=== PATIENT | male | born 1955 | race Caucasian/White ===

== ENCOUNTER 2017-11-09 06:29 | Day surgery (SDC) | payer OTHER, SELFPAY ==
[2017-11-09] VITALS (11 sets, daily range): BP systolic 96–144; BP diastolic 63–100; PULSE 46–97; RESP 14–16; TEMP 35.9–36.5; O2SAT 95–100; BMI 25.4
--- NOTE | 2017-11-09 | EGD_PTH ---
PATIENT: PORTILLO CHAMBERS LOC: EN U#:[id number] AGE/SX: 62/M ROOM: RE11/09/[address]: Dr. Sammy Zaman MD : 1955 BED: DIS: 11/09/2017 SPEC #: [id number] RECD: 11/09/17 11:43 STATUS: SIGNH JAMSHID #: [id number] JASWINDER: 11/09/17 00:[address]: Sammy aZman DEPT: SURGICAL PATHOLOGY RECD BY: Maximus Zeng ENTERED: 11/09/17 11:43 SP TYPE: EGD BIOPSY OT DR: Lidia Perry PA-C Tissues: A - Duodenum, NOS B - Gastric mucous membrane C - Gastric mucous membrane Procedures: Surgery Specimen Level IV HEADER OPERATION: Colonoscopy, EGD PRE-OP DIAGNOSIS: GERD with esophagitis; screening for colon CA TISSUE SUBMITTED: A ? Duodenal biopsy, B ? Antral biopsy, C ? GE junction biopsy MICROSCOPIC DIAGNOSIS A. Duodenum, biopsy: Mild nonspecific chronic inflammation. B. Gastric antrum, biopsy: Mild chronic gastritis. C. Gastroesophageal junction, biopsy: Junctional mucosa with chronic inflammation. Squamous mucosa with focal changes of reflux. AM:blanco 11/12/17 COMMENT A. There is no flattening of villi seen. The changes are nonspecific. Clinical correlation is suggested. B. The results of immunohistochemistry for Helicobacter pylori will be reported separately ([id number]). MICROSCOPIC DESCRIPTION Slides are reviewed. GROSS DESCRIPTION A - Received in fixative is one container labeled with the patient's name and designated duodenal biopsy. The specimen consists of multiple irregular fragments of light cantor soft tissue that in aggregate measure 1 x 0.3 x 0.1 cm. The specimen is totally submitted in one cassette. B - Received in fixative is one container labeled with the patient's name and designated antral biopsy. The specimen consists of one irregular fragment of light cantor soft tissue that measures 0.6 x 0.3 x 0.1 cm. The specimen is totally submitted in one cassette. C - Received in fixative is one container labeled with the patient's name and designated GE junction. The specimen consists of two irregular fragments of light cantor soft tissue that in aggregate measure 0.6 x 0.2 x 0.1 cm. The specimen is totally submitted in one cassette. / NEREYDA:blanco 11/09/17 TC:3 CPT: 53558 x3
--- NOTE | 2017-11-09 | IMM_PTH ---
PATIENT: PORTILLO CHAMBERS LOC: EN U#:[id number] AGE/SX: 62/M ROOM: RE11/09/[address]: Dr. Sammy Zaman MD : 1955 BED: DIS: 11/09/2017 SPEC #: [id number] RECD: 11/12/17 11:45 STATUS: SINGH REQ #: [id number] JASWINDER: 11/09/17 00:[address]: Sammy Zaman DEPT: IMMUNOHISTOCHEMISTRY RECD BY: Carol Wellington ENTERED: 11/12/17 11:46 SP TYPE: IMMUNO OTHR DR: Lidia Perry PA-C Tissues: B - Stomach, NOS Procedures: H Pylori (initial) PHYSICIAN & INSTITUTION [place] [address] SPECIMEN INFORMATION: Tissue Source: B ? Antral biopsy Clinical Info: GERD with esophagitis; screening Specimen Number: [id number] CPT code: 05204 METHODOLOGY: Deparaffinized sections of prefer/formalin-fixed tissue or PAP/DQ stained slides are incubated with monoclonal/polyclonal antibodies/oligonucleotide probes. Localization is made via biotin free immunoperoxidase method. Appropriate controls are performed and reacted as expected. Results on target cell population are indicated in the following table: RESULTS: ANTIBODY / CLONE RESULT Block B H Pylori (polyclonal) negative These tests were developed and their performance characteristics determined by [facility]. They may not have been cleared or approved by the U.S. Food and Drug Administration. The FDA has determined that such clearance or approval is not necessary. INTERPRETATION: B. Antral biopsy: Negative for Helicobacter pylori organisms. SJ:blanco 11/12/17
--- NOTE | 2017-11-09 07:44 | PCM.OPRPT ---
Problem List (1) GERD with esophagitis Status: Acute (2) Screening for intestinal cancer Status: Acute Report of Operation Date of Procedure: 11/09/17 Pre-Operative Diagnosis: Gastroesophageal reflux disease. Screening for intestinal cancer Post-Operative Diagnosis: Moderate 5 cm hiatal hernia, distal esophagitis at the e.g. junction. Minimal sigmoid diverticulosis. Suspected healed posterior anal fissure Surgery/Procedure Performed:: Esophagogastroduodenoscopy with cold forcep biopsies. Colonoscopy Description of Surgical Findings:: Timeout and informed consent was obtained. 62-year-old gent was taken to the endoscopy suite. His oropharynx anesthetized with Topex. He was placed in a left loud skin position. Throughout the procedure he received a total of 100 mg Demerol and 4 mg Versed is intravenous sedation. Under direct visitation gastroscope was inserted in the esophageal inlet. Proximal mid distal esophagus not grossly remarkable. The EG junction was at 39 cm. A 4-5 cm hiatal hernia noted there were changes suggestive distal esophagitis. Scope was advanced in the stomach which does not appear to be remarkable. The scope advanced through the pylorus with some very slight irritation of the duodenum. No ulcerations no bleeding. The first and second portion of the duodenum were inspected. Duodenal biopsy was obtained. This was very mild. The scope was withdrawn back in the stomach retroflexed the EG junction cardia inspected. A hiatal hernia noted. Photographs were obtained. The cardia was otherwise unremarkable. The greater and lesser curvatures were not remarkable. Antral biopsy was obtained. Excess fluid and air was aspirated free. The scope was withdrawn to the distal esophagus and biopsies were obtained to the e.g. junction. This appeared to be wide open. The scope was further withdrawn no additional esophageal abnormalities noted. Digital rectal exam performed. Posteriorly there was some slight rough perianal tissue posteriorly. On inspection this appeared to be consistent with some tissue from a healed posterior fissure. There seem to be some soft tissue deficit in that area on clinical digital exam. Some mild hemorrhoidal changes. 2+ smooth prostate. Flexible colonoscope inserted the rectum advanced quite readily through the colon. To get the scope to advance the cecum the patient was placed supine and some transabdominal pressure was applied. The cecum ileocecal valve area was nicely achieved. Bowel prep was quite good. The scope was carefully withdrawn from the cecum ascending colon transverse colon descending colon and sigmoid colon. Minimal scattered sigmoid diverticulosis noted. The scope was retroflexed. Anorectal verge inspected mild hemorrhoidal changes noted. Scope was placed back in antegrade viewing position. The scope was with removed without additional abnormality noted. Impression Hiatal hernia with findings consistent with reflux esophagitis. Biopsies pending. Minimal sigmoid diverticulosis. Findings suggestive of healed posterior anal fissure. The patient will be offered consideration for further workup regarding his gastroesophageal reflux disease with potential considering surgical intervention for repair. Next screening colonoscopy recommended in 10 years. This is the patient's first colonoscopy. Cc: Dr. Lidia Perry Upper medications were given at 0719. Procedure started 0721. It was completed at 0726. The colonoscopy was started at 0730. The cecum was reached at 0735. The procedure was completed at 0741. Sammy Zaman M.D., F.A.C.S. Type of Anesthesia:: IV Sedation
== END 2017-11-09 09:30 | disposition home or self-care (01) ==
LOC: EN 06:30 → AC 06:32
PROVIDERS: Family Provider Family Medicine; PCP Family Medicine; Visit Provider Surgery
PROC: 0DJD8ZZ Inspection of Lower Intestinal Tract, Via Natural or Artificial Opening Endoscopic (ICD-10-PCS; CPT 45378; principal; 2017-11-09 07:40)
DX: Z12.11 Encounter for screening for malignant neoplasm of colon (principal); K29.50 Unspecified chronic gastritis without bleeding; K52.9 Noninfective gastroenteritis and colitis, unspecified; K21.0 Gastro-esophageal reflux disease with esophagitis; K44.9 Diaphragmatic hernia without obstruction or gangrene; K57.30 Diverticulosis of large intestine without perforation or abscess without bleeding; G47.30 Sleep apnea, unspecified; Z87.891 Personal history of nicotine dependence; Z80.0 Family history of malignant neoplasm of digestive organs
CPT/HCPCS: 43239; 45378; 88305; 88342; 99152; 99153; J7120

== ENCOUNTER → 2018-02-21 14:25 | Outpatient (CLI) | payer OTHER, SELFPAY ==
[2017-11-09 06:48] VITALS: BMI 25.4
[2018-02-21 15:29] LABS: Absolute Lymphocyte Count 1.64 X10^3/ul (0.83-4.51); Absolute Neutrophil Count 3.3 X10^3/uL (2.0-7.7); Basophil# 0.01 X10^3/uL; Basophil% 0.2 % (0-1); Eosinophil# 0.07 X10^3/uL; Eosinophils% 1.3 % (0-5); Hematocrit 46.5 % (40-54); Hemoglobin 15.6 g/dl (13.0-16.5); Lymphocyte # 1.64 X10^3/ul (4.0); Lymphocyte % 29.8 % (19-41); Mean Corp Hgb Conc 33.5 g/gl (32-36); Mean Corpuscular Volume 95.3 fL (80-94); Mean Platelet Vol. 10.3 fl (6.2-12.0); Monocyte# 0.49 X10^3/uL; Monocyte% 8.9 % (0-10); Neutrophil # 3.28 X10^3/uL (2.7-7.7); Neutrophil % 59.6 % (47-70); Platelet Count 157 K/mm3 (150-450); RBC Distribution Width CV 12.4 % (11.6-14.6); RBC Distribution Width SD 42.4 fl (35.1-43.9); Red Blood Count 4.88 M/mm3 (4.6-6.2); White Blood Count 5.5 K/mm3 (4.4-11.0)
[2018-02-21 15:32] LABS: POSITIVE COUNT NO; POSITIVE DIFFERENTIAL NO; POSITIVE MORPHOLOGY NO
[2018-02-21 15:37] LABS: ALB/GLOB Ratio 1.1 RATIO (0.9-2.4); AST(SGOT) 23 U/L (15-37); Alanine Aminotransfer ALT/SGPT 32 U/L (16-61); Alkaline Phosphatase 96 U/L (45-117); Anion Gap 7 (5-15); BUN 16 mg/dL (7-18); BUN/Creat Ratio 13.8 RATIO (10-20); Calcium,Total 8.5 mg/dL (8.5-10.1); Chloride 110 mmol/L (98-107); Creatinine, Serum 1.16 mg/dL (0.70-1.30); EST Glomerular Filtration Rate 68 mL/min (>60); Est Glom Filt Rate - Afr Amer 82 mL/min (>60); Globulin 3.7 g/dL (2.2-4.2); Glucose 78 mg/dL (74-106); Protein, Total 7.7 g/dL (6.4-8.2); Sodium Level 143 mmol/L (136-145)
[2018-02-26 13:27] LABS: ANTINUCLEAR ANTIBODIES DIRECT Positive (Negative); Anti-dsDNA Ab 4 IU/mL (0-9)
== END ==
PROVIDERS: Family Provider Family Medicine; PCP Family Medicine; Referring Provider Dermatology Pediatric Dermatology; Visit Provider Dermatology Pediatric Dermatology
DX: L30.9 Dermatitis, unspecified (principal); T49.0X5A Adverse effect of local antifungal, anti-infective and anti-inflammatory drugs, initial encounter
CPT/HCPCS: 36415; 80053; 85025; 86038; 86225

== ENCOUNTER 2018-05-09 07:37 | Day surgery (SDC) | payer OTHER, SELFPAY ==
[2018-04-25 07:52] VITALS: BMI 24.7
[2018-05-09 08:01] VITALS: BP 157/98; PULSE 63; RESP 16; TEMP 36.3; O2SAT 98
== END 2018-05-09 08:31 | disposition home or self-care (01) ==
PROVIDERS: Family Provider Family Medicine; PCP Family Medicine; Referring Provider Surgery; Visit Provider Surgery
PROC: F00ZJWZ Instrumental Swallowing and Oral Function Assessment using Swallowing Equipment (ICD-10-PCS; CPT 43235; principal; 2018-05-09 07:55)
DX: K44.9 Diaphragmatic hernia without obstruction or gangrene (principal)
CPT/HCPCS: 91010

== ENCOUNTER 2018-07-08 09:44 | Observation (INO) | payer OTHER, SELFPAY ==
[2018-05-23 08:34] VITALS: BMI 25.5
--- NOTE | 2018-05-28 09:38 | HP_ITS ---
Intake Vital Signs 05/23/18 Height 5 ft 6.5 in 05/23/18 Weight: 160 lb 12 oz 05/23/18 Body Mass Index (BMI) 25.5 05/23/18 Blood Pressure 144/78 H 05/23/18 Blood Pressure Location Rt brachial 05/23/18 Blood Pressure Position Sitting 05/23/18 Respiratory Rate 20 H 05/23/18 Pulse Rate 57 L 05/23/18 Pulse Ox 97 05/23/18 Body Mass Index (BMI) 24.7 Intake Visit Reasons: Discuss Lap Gerir Surgery Chief Complaint: discuss lap gerri Vice President For Instruction Required: No Is patient in pain?: No Allergies esomeprazole Allergy (Mild, Verified 04/25/18 07:55) Rash Medications ranitidine 150 mg tablet 150 mg PO DAILY 04/25/18 [History Confirmed 05/23/18] PFSH Medical History Screening for intestinal cancer (Acute) GERD with esophagitis (Acute) GERD (gastroesophageal reflux disease) (Acute) Sleep apnea (Acute) Surgical History History of esophagogastroduodenoscopy (EGD) (Acute) Family History Father Cancer esophageal Social History Smoking Status: Former smoker alcohol intake: current substance use type: does not use HPI HPI Surgical H&P: Yes HPI: PORTILLO CHAMBERS, is a 63 M who presents to the office today for surgical discussion regarding intractable gastroesophageal reflux disease. Please refer to my previous office review as follows. Intake Vital Signs 04/25/18 Height 5 ft 7.5 in 04/25/18 Weight: 160 lb 04/25/18 Body Mass Index (BMI) 24.7 04/25/18 Blood Pressure 160/92 H 04/25/18 Blood Pressure Location Rt brachial 04/25/18 Blood Pressure Position Sitting 04/25/18 Respiratory Rate 18 04/25/18 Pulse Rate 60 Intake Visit Reasons: TO DISCUSS HIATAL HERNIA/EGD & C-SCOPE WAS 10/2017 Chief Complaint: screening c-scope/ EGD for fam hx esoph CA Vice President For Instruction Required: No Is patient in pain?: No Allergies esomeprazole Allergy (Mild, Verified 04/25/18 07:55) Rash Medications ranitidine 150 mg tablet 150 mg PO DAILY 04/25/18 [History Confirmed 04/25/18] [facility] Medical History Screening for intestinal cancer (Acute) GERD with esophagitis (Acute) GERD (gastroesophageal reflux disease) (Acute) Sleep apnea (Acute) Surgical History History of esophagogastroduodenoscopy (EGD) (Acute) Family History Father Cancer esophageal Social History Smoking Status: Former smoker alcohol intake: current substance use type: does not use HPI HPI HPI: PORTILLO CHAMBERS, is a 63 M who presents to the office today for ongoing surgical consultation regarding gastroesophageal reflux disease and hiatal hernia and reflux esophagitis. September 2017 I evaluated this patient. He had been previously evaluated for intractable reflux. At that point he was proton pump inhibitor. I placed him post procedure on his omeprazole but apparently he developed a rash. He now takes ranitidine daily but has significant ongoing problems with reflux and discomfort. He is a short local company flatbed truck driver. He does do some lifting and straining as well working for the [employer]. Because of ongoing symptoms he returns wanting to go to investigate other treatment options for his GERD. Previous biopsies demonstrated mild gastritis with H. pylori negative. There was biopsy changes consistent with reflux esophagitis. My procedure note is as follows. [facility] Medical Records Department [address] [place] [address] Operative Report 11/09/17 0744 MR#: [id number]:[id number] Name: PORTILLO CHAMBERS [facility] #:[id number] : [id number]: Sammy Zaman MD PCP:Lidia Perry PA-C Status:[facility] Location: [place] [address] Problem List (1) GERD with esophagitis Status: Acute (2) Screening for intestinal cancer Status: Acute Report of Operation Date of Procedure: 11/09/17 Pre-Operative Diagnosis: Gastroesophageal reflux disease. Screening for intestinal cancer Post-Operative Diagnosis: Moderate 5 cm hiatal hernia, distal esophagitis at the e.g. junction. Minimal sigmoid diverticulosis. Suspected healed posterior anal fissure Surgery/Procedure Performed:: Esophagogastroduodenoscopy with cold forcep biopsies. Colonoscopy Description of Surgical Findings:: Timeout and informed consent was obtained. 62-year-old gent was taken to the endoscopy suite. His oropharynx anesthetized with Topex. He was placed in a left loud skin position. Throughout the procedure he received a total of 100 mg Demerol and 4 mg Versed is intravenous sedation. Under direct visitation gastroscope was inserted in the esophageal inlet. Proximal mid distal esophagus not grossly remarkable. The EG junction was at 39 cm. A 4-5 cm hiatal hernia noted there were changes suggestive distal esophagitis. Scope was advanced in the stomach which does not appear to be remarkable. The scope advanced through the pylorus with some very slight irritation of the duodenum. No ulcerations no bleeding. The first and second portion of the duodenum were inspected. Duodenal biopsy was obtained. This was very mild. The scope was withdrawn back in the stomach retroflexed the EG junction cardia inspected. A hiatal hernia noted. Photographs were obtained. The cardia was otherwise unremarkable. The greater and lesser curvatures were not remarkable. Antral biopsy was obtained. Excess fluid and air was aspirated free. The scope was withdrawn to the distal esophagus and biopsies were obtained to the e.g. junction. This appeared to be wide open. The scope was further withdrawn no additional esophageal abnormalities noted. Digital rectal exam performed. Posteriorly there was some slight rough perianal tissue posteriorly. On inspection this appeared to be consistent with some tissue from a healed posterior fissure. There seem to be some soft tissue deficit in that area on clinical digital exam. Some mild hemorrhoidal changes. 2+ smooth prostate. Flexible colonoscope inserted the rectum advanced quite readily through the colon. To get the scope to advance the cecum the patient was placed supine and some transabdominal pressure was applied. The cecum ileocecal valve area was nicely achieved. Bowel prep was quite good. The scope was carefully withdrawn from the cecum ascending colon transverse colon descending colon and sigmoid colon. Minimal scattered sigmoid diverticulosis noted. The scope was retroflexed. Anorectal verge inspected mild hemorrhoidal changes noted. Scope was placed back in antegrade viewing position. The scope was with removed without additional abnormality noted. Impression Hiatal hernia with findings consistent with reflux esophagitis. Biopsies pending. Minimal sigmoid diverticulosis. Findings suggestive of healed posterior anal fissure. The patient will be offered consideration for further workup regarding his gastroesophageal reflux disease with potential considering surgical intervention for repair. Next screening colonoscopy recommended in 10 years. This is the patient's first colonoscopy. Cc: Dr. Lidia Perry Upper medications were given at 0719. Procedure started 0721. It was completed at 0726. The colonoscopy was started at 0730. The cecum was reached at 0735. The procedure was completed at 0741. Sammy Zaman M.D., F.A.C.S. Type of Anesthesia:: IV Sedation 11/09/17 0750<Electronically signed by Sammy Zaman MD> Date Sammy Zaman MD CC: DAVID Perry; Lidia Perry; Sammy Zaman MD ~ Signed ROS General General: No weight change, appetite, fatigue, colon cancer, breast cancer or weakness HEENT HEENT: No difficulty swallowing, eye injury, eye surgery, swollen glands or hoarseness Endo Endocrine: No thyroid disease, diabetes mellitus, thyroid cancer, Hair loss, heat intolerance or cold intolerance Skin Skin: No rash or changing moles Breast Breast: No left breast lump, right breast lump, nipple discharge, breast pain, abnormal mammogram, abnormal US or breast enlargement Musc Musculoskeletal: No back problems, arthritis, rheumatoid arthritis, gout or joint pain Cardio Cardiovascular: No murmur, pacemaker, heart disease, atrial fibrillation, high blood pressure, heart attack, heart stent, palpitations, shortness of breat with exertion or chest pain Psych Psychiatric: No depression, anxiety or hearing voices Resp Respiratory: No shortness of breath, No sleep apnea, No cough, No COPD, No asthma, No emphysema, No wheezing Gastro Gastrointestinal: No abdominal pain, No nausea or vomiting, No diarrhea, No constipation, No blood in stool, Yes acid reflux, No hemorrhoids, No ulcers, No gallbladder problem, No black,tarry stools Armani Hematologic: No blood thinners, No blood disorders, No bleeding, No anemia, No blood clots Neuro Neurologic: No system reviewed and no additional complaints, except as docu, No as per HPI, No abnormal walking, No abnormal hearing, No abnormal movements, No abnormal speech, No behavioral changes, No burning sensations, No confusion, No seizure-like activity, No unsteadiness, No dizziness, No localized weakness, No frequent falls, No headache(s), No lack of coordination, No loss of vision, No memory loss, Yes numbness, No other visual disturbances, No radiating pain, No restless legs, No sensory deficit, No fainting, Yes tingling, No tremor(s), No weakness, No other Exam Chest Breast Palpation: No nipple discharge Cardio Heart Sounds: no murmurs Assessment & Plan Problems 1. GERD with esophagitis K21.0 Plan Today's appointment was a consultative appointment. I recommend to the patient that we pursue esophageal manometry. I have discussed with him the technique and benefits. I recommend to the patient that we be considering a laparoscopic reflux procedure. At age 63 he is enjoying good health. BMI is 24.7. He would be a good candidate for laparoscopic repair of his hiatal hernia reduction of the stomach and a reflux wrap. Pending the results of his manometry may be a candidate for Gerri fundoplication. He has had an opportunity to ask and have questions answered. I will have him return to my office subsequent to her manometry to discuss definitive options. I appreciate the ongoing opportunity of assisting with his surgical care. CC: DAVID Villanueva M.D., F.A.C.S. Orders Orders: Esophageal Manometry Today Medications New: ranitidine (Zantac) 150 mg PO DAILY Coding Level of Care Code Off vis,est,level 2 Diagnoses GERD with esophagitis K21.0 04/25/18 0934<Electronically signed by Sammy Zaman MD> Date Sammy Zaman MD ROS General General: No weight change, appetite, fatigue, colon cancer, breast cancer or weakness HEENT HEENT: No difficulty swallowing, eye injury, eye surgery, swollen glands or hoarseness Endo Endocrine: No thyroid disease, diabetes mellitus, thyroid cancer, Hair loss, heat intolerance or cold intolerance Skin Skin: No rash or changing moles Breast Breast: No left breast lump, right breast lump, nipple discharge, breast pain, abnormal mammogram, abnormal US or breast enlargement Musc Musculoskeletal: No back problems, arthritis, rheumatoid arthritis, gout or joint pain Cardio Cardiovascular: No murmur, pacemaker, heart disease, atrial fibrillation, high blood pressure, heart attack, heart stent, palpitations, shortness of breat with exertion or chest pain Psych Psychiatric: No depression, anxiety or hearing voices Resp Respiratory: No shortness of breath, No sleep apnea, No cough, No COPD, No asthma, No emphysema, No wheezing Gastro Gastrointestinal: No abdominal pain, No nausea or vomiting, No diarrhea, No constipation, No blood in stool, Yes acid reflux, No hemorrhoids, No ulcers, No gallbladder problem, No black,tarry stools Armani Hematologic: No blood thinners, No blood disorders, No bleeding, No anemia, No blood clots Neuro Neurologic: No weakness Exam Chest Breast Palpation: No nipple discharge Cardio Heart Sounds: no murmurs Assessment & Plan Problems 1. GERD with esophagitis K21.0 Plan The patient returns with his to discuss today he is intractable gastroesophageal reflux disease and previous dependence upon proton pump inhibitors. On May 09, 2018 at the [facility] he had esophageal manometry obtained. 10 swallows were analyzed with good bolus clearance and good swallowing motility. There was normal LES relaxation. As noted above my upper endoscopy exam of September 2017 had detected gastroesophageal reflux disease and hiatal hernia and reflux esophagitis with H. pylori negative. Today was a 20-minute [id number] consultative appointment. I have discussed potential surgical treatments for reflux and detail discussed laparoscopic Gerri fundoplication and laparoscopic toupee procedure. We discussed other techniques as well. The patient and his have had an opting to ask and have questions answered. I believe that he would be a good candidate for laparoscopic Gerri fundoplication. I have discussed the technique, benefit, risks, alternatives. He has had an opting to ask and have questions answered. At this point he is interested in proceeding. We will schedule and proceed at his discretion. I very much appreciate the kind opportunity of continue to assist with his surgical care CC: David Villanueva M.D., F.A.C.S. Coding Level of Care Code Off vis,est,level 2 Diagnoses GERD with esophagitis K21.0
[2018-06-13 08:54] VITALS: BMI 25.5
--- NOTE | 2018-06-28 12:02 | HP.PCM_ITS ---
Problem List (1) GERD (gastroesophageal reflux disease) Status: Acute Qualifiers: Esophagitis presence: with esophagitis Qualified Code(s): K21.0 - Gastro- esophageal reflux disease with esophagitis History and Physical Date of Admission: 07/08/18 MR#: [id number] Name: PORTILLO CHAMBERS Rep #: [id number] : 1955 63 From: Sammy Zaman MD PCP: Lidia Perry PA-C Status: PRE SDC Location: SDC Intake Vital Signs 05/23/18 Height 5 ft 6.5 in 05/23/18 Weight: 160 lb 12 oz 05/23/18 Body Mass Index (BMI) 25.5 05/23/18 Blood Pressure 144/78 H 05/23/18 Blood Pressure Location Rt brachial 05/23/18 Blood Pressure Position Sitting 05/23/18 Respiratory Rate 20 H 05/23/18 Pulse Rate 57 L 05/23/18 Pulse Ox 97 05/23/18 Body Mass Index (BMI) 24.7 Intake Visit Reasons: Discuss Lap Tushar Surgery Chief Complaint: discuss lap tushar Panel Wirer Required: No Is patient in pain?: No Allergies esomeprazole Allergy (Mild, Verified 04/25/18 07:55) Rash Medications ranitidine 150 mg tablet 150 mg PO DAILY 04/25/18 [History Confirmed 05/23/18] PFSH Medical History Screening for intestinal cancer (Acute) GERD with esophagitis (Acute) GERD (gastroesophageal reflux disease) (Acute) Sleep apnea (Acute) Surgical History History of esophagogastroduodenoscopy (EGD) (Acute) Family History Father Cancer esophageal Social History Smoking Status: Former smoker alcohol intake: current substance use type: does not use HPI HPI Surgical H&P: Yes HPI: PORTILLO CHAMBERS, is a 63 M who presents to the office today for surgical discussion regarding intractable gastroesophageal reflux disease. Please refer to my previous office review as follows. Intake Vital Signs 04/25/18 Height 5 ft 7.5 in 04/25/18 Weight: 160 lb 04/25/18 Body Mass Index (BMI) 24.7 04/25/18 Blood Pressure 160/92 H 04/25/18 Blood Pressure Location Rt brachial 04/25/18 Blood Pressure Position Sitting 04/25/18 Respiratory Rate 18 04/25/18 Pulse Rate 60 Intake Visit Reasons: TO DISCUSS HIATAL HERNIA/EGD & C-SCOPE WAS 10/2017 Chief Complaint: screening c-scope/ EGD for fam hx esoph CA Panel Wirer Required: No Is patient in pain?: No Allergies esomeprazole Allergy (Mild, Verified 04/25/18 07:55) Rash Medications ranitidine 150 mg tablet 150 mg PO DAILY 04/25/18 [History Confirmed 04/25/18] [facility] Medical History Screening for intestinal cancer (Acute) GERD with esophagitis (Acute) GERD (gastroesophageal reflux disease) (Acute) Sleep apnea (Acute) Surgical History History of esophagogastroduodenoscopy (EGD) (Acute) Family History Father Cancer esophageal Social History Smoking Status: Former smoker alcohol intake: current substance use type: does not use HPI HPI HPI: PORTILLO BLAKELYKOKRISH, is a 63 M who presents to the office today for ongoing surgical consultation regarding gastroesophageal reflux disease and hiatal hernia and reflux esophagitis. September 2017 I evaluated this patient. He had been previously evaluated for intractable reflux. At that point he was proton pump inhibitor. I placed him post procedure on his omeprazole but apparently he developed a rash. He now takes ranitidine daily but has significant ongoing problems with reflux and discomfort. He is a short aircraft engine mechanic overhaul. He does do some lifting and straining as well working for the [employer]. Because of ongoing symptoms he returns wanting to go to investigate other treatment options for his GERD. Previous biopsies demonstrated mild gastritis with H. pylori negative. There was biopsy changes consistent with reflux esophagitis. My procedure note is as follows. [facility] Medical Records Department [address] [place] [address] Operative Report 11/09/17 0744 MR#: [id number] Name: CHRIS CHAMBERSN [facility] #:[id number] : [id number]: Sammy Zaman MD PCP:Lidia Perry PA-C Status:REG SD Location: [id number] Problem List (1) GERD with esophagitis Status: Acute (2) Screening for intestinal cancer Status: Acute Report of Operation Date of Procedure: 11/09/17 Pre-Operative Diagnosis: Gastroesophageal reflux disease. Screening for intestinal cancer Post-Operative Diagnosis: Moderate 5 cm hiatal hernia, distal esophagitis at the e.g. junction. Minimal sigmoid diverticulosis. Suspected healed posterior anal fissure Surgery/Procedure Performed:: Esophagogastroduodenoscopy with cold forcep biopsies. Colonoscopy Description of Surgical Findings:: Timeout and informed consent was obtained. 62-year-old gent was taken to the endoscopy suite. His oropharynx anesthetized with Topex. He was placed in a left loud skin position. Throughout the procedure he received a total of 100 mg Demerol and 4 mg Versed is intravenous sedation. Under direct visitation gastroscope was inserted in the esophageal inlet. Proximal mid distal esophagus not grossly remarkable. The EG junction was at 39 cm. A 4-5 cm hiatal hernia noted there were changes suggestive distal esophagitis. Scope was advanced in the stomach which does not appear to be remarkable. The scope advanced through the pylorus with some very slight irritation of the duodenum. No ulcerations no bleeding. The first and second portion of the duodenum were inspected. Duodenal biopsy was obtained. This was very mild. The scope was withdrawn back in the stomach retroflexed the EG junction cardia inspected. A hiatal hernia noted. Photographs were obtained. The cardia was otherwise unremarkable. The greater and lesser curvatures were not remarkable. Antral biopsy was obtained. Excess fluid and air was aspirated free. The scope was withdrawn to the distal esophagus and biopsies were obtained to the e.g. junction. This appeared to be wide open. The scope was further withdrawn no additional esophageal abnormalities noted. Digital rectal exam performed. Posteriorly there was some slight rough perianal tissue posteriorly. On inspection this appeared to be consistent with some tissue from a healed posterior fissure. There seem to be some soft tissue deficit in that area on clinical digital exam. Some mild hemorrhoidal changes. 2+ smooth prostate. Flexible colonoscope inserted the rectum advanced quite readily through the colon. To get the scope to advance the cecum the patient was placed supine and some transabdominal pressure was applied. The cecum ileocecal valve area was nicely achieved. Bowel prep was quite good. The scope was carefully withdrawn from the cecum ascending colon transverse colon descending colon and sigmoid colon. Minimal scattered sigmoid diverticulosis noted. The scope was retroflexed. Anorectal verge inspected mild hemorrhoidal changes noted. Scope was placed back in antegrade viewing position. The scope was with removed without additional abnormality noted. Impression Hiatal hernia with findings consistent with reflux esophagitis. Biopsies pending. Minimal sigmoid diverticulosis. Findings suggestive of healed posterior anal fissure. The patient will be offered consideration for further workup regarding his gastroesophageal reflux disease with potential considering surgical intervention for repair. Next screening colonoscopy recommended in 10 years. This is the patient's first colonoscopy. Cc: Dr. Lidia Perry Upper medications were given at 0719. Procedure started 0721. It was completed at 0726. The colonoscopy was started at 0730. The cecum was reached at 0735. The procedure was completed at 0741. Sammy Zaman M.D., F.A.C.S. Type of Anesthesia:: IV Sedation 11/09/17 0750<Electronically signed by Sammy Zaman MD> Date Sammy Zaman MD CC: DAVID Perry; Lidia Perry; Sammy Zaman MD ~ Signed ROS General General: No weight change, appetite, fatigue, colon cancer, breast cancer or weakness HEENT HEENT: No difficulty swallowing, eye injury, eye surgery, swollen glands or hoarseness Endo Endocrine: No thyroid disease, diabetes mellitus, thyroid cancer, Hair loss, heat intolerance or cold intolerance Skin Skin: No rash or changing moles Breast Breast: No left breast lump, right breast lump, nipple discharge, breast pain, abnormal mammogram, abnormal US or breast enlargement Musc Musculoskeletal: No back problems, arthritis, rheumatoid arthritis, gout or joint pain Cardio Cardiovascular: No murmur, pacemaker, heart disease, atrial fibrillation, high blood pressure, heart attack, heart stent, palpitations, shortness of breat with exertion or chest pain Psych Psychiatric: No depression, anxiety or hearing voices Resp Respiratory: No shortness of breath, No sleep apnea, No cough, No COPD, No asthma, No emphysema, No wheezing Gastro Gastrointestinal: No abdominal pain, No nausea or vomiting, No diarrhea, No constipation, No blood in stool, Yes acid reflux, No hemorrhoids, No ulcers, No gallbladder problem, No black,tarry stools Armani Hematologic: No blood thinners, No blood disorders, No bleeding, No anemia, No blood clots Neuro Neurologic: No system reviewed and no additional complaints, except as docu, No as per HPI, No abnormal walking, No abnormal hearing, No abnormal movements, No abnormal speech, No behavioral changes, No burning sensations, No confusion, No seizure-like activity, No unsteadiness, No dizziness, No localized weakness, No frequent falls, No headache(s), No lack of coordination, No loss of vision, No memory loss, Yes numbness, No other visual disturbances, No radiating pain, No restless legs, No sensory deficit, No fainting, Yes tingling, No tremor(s), No weakness, No other Exam Chest Breast Palpation: No nipple discharge Cardio Heart Sounds: no murmurs Assessment & Plan Problems 1. GERD with esophagitis K21.0 Plan Today's appointment was a consultative appointment. I recommend to the patient that we pursue esophageal manometry. I have discussed with him the technique and benefits. I recommend to the patient that we be considering a laparoscopic reflux procedure. At age 63 he is enjoying good health. BMI is 24.7. He would be a good candidate for laparoscopic repair of his hiatal hernia reduction of the stomach and a reflux wrap. Pending the results of his manometry may be a candidate for Tushar fundoplication. He has had an opportunity to ask and have questions answered. I will have him return to my office subsequent to her manometry to discuss definitive options. I appreciate the ongoing opportunity of assisting with his surgical care. CC: DAVID Villanueva M.D., F.A.C.S. Orders Orders: Esophageal Manometry Today Medications New: ranitidine (Zantac) 150 mg PO DAILY Coding Level of Care Code Off vis,est,level 2 Diagnoses GERD with esophagitis K21.0 04/25/18 0934<Electronically signed by Sammy Zaman MD> Date Sammy Zaman MD ROS General General: No weight change, appetite, fatigue, colon cancer, breast cancer or weakness HEENT HEENT: No difficulty swallowing, eye injury, eye surgery, swollen glands or hoarseness Endo Endocrine: No thyroid disease, diabetes mellitus, thyroid cancer, Hair loss, heat intolerance or cold intolerance Skin Skin: No rash or changing moles Breast Breast: No left breast lump, right breast lump, nipple discharge, breast pain, abnormal mammogram, abnormal US or breast enlargement Musc Musculoskeletal: No back problems, arthritis, rheumatoid arthritis, gout or joint pain Cardio Cardiovascular: No murmur, pacemaker, heart disease, atrial fibrillation, high blood pressure, heart attack, heart stent, palpitations, shortness of breat with exertion or chest pain Psych Psychiatric: No depression, anxiety or hearing voices Resp Respiratory: No shortness of breath, No sleep apnea, No cough, No COPD, No asthma, No emphysema, No wheezing Gastro Gastrointestinal: No abdominal pain, No nausea or vomiting, No diarrhea, No constipation, No blood in stool, Yes acid reflux, No hemorrhoids, No ulcers, No gallbladder problem, No black,tarry stools Armani Hematologic: No blood thinners, No blood disorders, No bleeding, No anemia, No blood clots Neuro Neurologic: No weakness Exam Chest Breast Palpation: No nipple discharge Cardio Heart Sounds: no murmurs Assessment & Plan Problems 1. GERD with esophagitis K21.0 Plan The patient returns with his to discuss today he is intractable gastroesophageal reflux disease and previous dependence upon proton pump inhibitors. On May 09, 2018 at the [facility] he had esophageal manometry obtained. 10 swallows were analyzed with good bolus clearance and good swallowing motility. There was normal LES relaxation. As noted above my upper endoscopy exam of September 2017 had detected gastroesophageal reflux disease and hiatal hernia and reflux esophagitis with H. pylori negative. Today was a 20-minute [id number]-or-[id number] consultative appointment. I have discussed potential surgical treatments for reflux and detail discussed laparoscopic Tushar fundoplication and laparoscopic toupee procedure. We discussed other techniques as well. The patient and his have had an opting to ask and have questions answered. I believe that he would be a good candidate for laparoscopic Tushar fundoplication. I have discussed the technique, benefit, risks, alternatives. He has had an opting to ask and have questions answered. At this point he is interested in proceeding. We will schedule and proceed at his discretion. I very much appreciate the kind opportunity of continue to assist with his surgical care CC: David Villanueva M.D., F.A.C.S. Coding Level of Care Code Off vis,est,level 2 Diagnoses GERD with esophagitis K21.0 06/11/18 1708 <Electronically signed by Sammy Zaman MD> Date: Time: Sammy Zaman MD CC: DAVID Perry; Sammy Zaman MD ~ Date Dictated: 05/28/18937 Date Transcribed: 06/10/18937 Triage Licensed Practical Nurse: Signed I have re-examined the patient. There are no clinical changes since date of exam
--- NOTE | 2018-07-05 11:15 | EKG12_ITS ---
Test Reason : PREOP Blood Pressure : / mmHG Vent. Rate : 049 BPM Atrial Rate : 049 BPM P-R Int : 160 ms QRS Dur : 084 ms QT Int : 432 ms P-R-T Axes : 042 012 024 degrees QTc Int : 390 ms Marked sinus bradycardia Abnormal ECG Confirmed by DEA HUTSON ([id number]), book or script editor EDEL PAULSON ([id number]) on 07/08/2018 2:02:20 PM Referred By: Sammy Zaman Confirmed By:DEA HUTSON
[2018-07-05 11:51] LABS: Hematocrit 45.7 % (40-54); Hemoglobin 15.2 g/dl (13.0-16.5); Mean Corp Hgb Conc 33.3 g/gl (32-36); Mean Corpuscular Hgb 31.6 pg (27.0-32.0); Mean Platelet Vol. 10.4 fl (6.2-12.0); Platelet Count 139 K/mm3 (150-450); RBC Distribution Width CV 12.5 % (11.6-14.6); RBC Distribution Width SD 43.1 fl (35.1-43.9); Red Blood Count 4.81 M/mm3 (4.6-6.2); Scan Indicated on CBC? Y/N NO; White Blood Count 5.2 K/mm3 (4.4-11.0)
[2018-07-05 12:29] LABS: Anion Gap 6 (5-15); BUN 11 mg/dL (7-18); BUN/Creat Ratio 10.6 RATIO (10-20); Calcium,Total 8.5 mg/dL (8.5-10.1); Chloride 108 mmol/L (98-107); Creatinine, Serum 1.04 mg/dL (0.70-1.30); EST Glomerular Filtration Rate 77 mL/min (>60); Est Glom Filt Rate - Afr Amer 93 mL/min (>60); Glucose 92 mg/dL (74-106); Potassium 4.2 mmol/L (3.5-5.1); Sodium Level 140 mmol/L (136-145)
[2018-07-08] VITALS (11 sets, daily range): BP systolic 117–151; BP diastolic 81–104; PULSE 50–83; RESP 16–18; TEMP 36.2–36.6; O2SAT 94–97; BMI 25.8
--- NOTE | 2018-07-08 07:12 | DCINST_ITS ---
Discharge Diet: - - Liquid diet. Anything is permitted that will dissolve at body temperature. If that is well tolerated you can advance to very soft foods like pasta and rice. Next on the diet would be flaky fish or small bites of very well cooked chicken. Please reserve beef and pork until your swallowing with no difficulty Discharge Activity: May Not Drive - for 1 week or while taking narcotic pain medicine. May shower in (days): 1 Lifting Restrictions: 10 pounds Call your doctor if your incision/area has: Continuous Slow Oozing, Sudden Increased Bleeding, Increased Pain/ Swelling, Increased Redness, Foul Smelling Discharge Call your doctor if you observe: Fever of 101 or Higher Suture Line Care: Avoid Pulling/Pushing, Avoid Pinching/Bending Additional Dressing/Incision Instructions:: Change or remove dressing in 3 days. Leave steri-strips in place for 1 week. Allergies/Adverse Reactions: Allergies esomeprazole Allergy (Mild, Verified 07/01/18 09:46) Rash Medications to take at Discharge ranitidine 150 mg tablet 150 mg PO DAILY 04/25/18 Primary Care Physician: Lidia Perry PA-C [Primary Care Provider] - Test Results: Test results from this visit will be discussed in further detail at your follow- up appointment, if applicable. Please Follow Up With: Sammy Zaman MD - [phone] When: Call to make an appointment to be seen in about 10 days.
[2018-07-08] MEDS: Cefazolin 2 GM in 0.9% Normal Saline 100 ML IV (07:14)
--- NOTE | 2018-07-08 09:48 | PCM.OPRPT ---
Problem List (1) GERD (gastroesophageal reflux disease) Status: Acute Qualifiers: Esophagitis presence: with esophagitis Qualified Code(s): K21.0 - Gastro-esophageal reflux disease with esophagitis Report of Operation Date of Procedure: 07/08/18 Pre-Operative Diagnosis: Intractable gastroesophageal reflux disease medicine dependent with hiatal hernia Post-Operative Diagnosis: Same Surgery/Procedure Performed:: Laparoscopic Tushar fundoplication Description of Surgical Findings:: Timeout and informed consent was obtained. 63-year-old gent was examined from placement table underwent general endotracheal intubation and anesthesia. Ancef 2 g were given intravenously preoperatively. He was placed in a low lithotomy position. Careful buttock padding was performed. The patient was on a beanbag for further support. The abdomen was sterilely prepped and draped. Ioban drape was used to further secure drapes. 0.5% Marcaine was used as a local anesthetic. Throughout the procedure total 30 cc was used. Skin sites were pre-anesthetized. Superior to the right umbilicus local was instilled and then using a 5 mm Visiport technology direct access was gained to the abdomen. The abdomen was insufflated with CO2 to a pressure of 10 mm rectal pressure. Tunneling trocar was placed in the left upper quadrant 2 more 5 mm 4 parts in the left upper quadrant and then an additional 5 m site in the superior epigastrium where a Farooq's retractor was placed to help hold the left lobe of the liver. Inspection revealed actually moderate sized hiatal hernia with stomach within the chest. The medical esophageal ligament fascia was incised peritoneal fascia was incised I then worked my way over the left side. The left herman identified and I was able to free up the left portion of the stomach I did this by dissecting and transecting short gastrics to mobilize the fundus of the stomach. This gave me access to the stomach from the left side and was able to eat nicely to blunt dissection became apparent there was a moderate sized hernia with stomach within the mediastinum. I then was able to track superiorly over the esophagus and identified that are the right herman Harmonic Scalpel dissection to help transect that and then I tediously worked into the mediastinum. Placed a 1/2 inch Coupland drain around the esophagus to help manipulate and was able to circumferentially 360 degree mobilize esophagus up to the proximal mid mediastinum at least 8 cm cephalad circumferentially. Care was taken to preserve the vagus nerve. The circumferential dissection was question about possible small opening in the right pleura anesthesia was notified and provided some PEEP. I did complete circumferential dissection complete mobilization felt that I had good mobilization to allow up to get the stomach back down to the abdomen. There was reasonable size crural defect. I repaired that with 0 Nurolon sutures with Telfa pledgets. 4 sutures were required to repair the hiatus felt that there was good room for the esophagus. Then the fundus wrapped quite easily. My apical suture using the 0 Nurolon from the fundus of the stomach to the epiphrenic ligament to the anterior wall of the esophagus into the left portion of the fundus and secured that also with pleasant sutures. That appeared to have a good position lie. I placed 1 more fundic stitch to create a short floppy Tushar. I felt that he had good positioning of the wrap. Then insufflated water. I placed a flexible gastroscope and performed a esophagogastroduodenoscopy. Was able to inspect the esophagus EG junction appeared to be in good position there was some curvature from the extensive repair of the posterior hiatus however the scope nicely advanced through the EG junction. I retro-flex the scope was able to see the 360 degree wrap internally also appeared to be in good position. The antrum and proximal duodenum not remarkable. Excess fluid and air was aspirated free. Carefully removed the endoscope. An OG tube was used to completely decompress the stomach nicely. There have been no laparoscopic visualized leak internally. The tunneling trocar site was removed and then the fascia was closed with a grainy needle of 0 Vicryl [id number] suture. Skin edges were approximated interrupted 4 Monocryl subdermal stitches. Steri-Strips Telfa and OpSite dressings applied. Sponge and instrument and needle counts were reported in the surgical correct. Blood loss was quite minimal. He tolerated the procedure well was taken to the recovery room in satisfactory condition without apparent complication. Specimens none. Drains none. Blood loss minimal. Sammy Zaman M.D., F.A.C.S. Type of Anesthesia:: General Anesthesiologist: Jannie Virk
[2018-07-08] MEDS: Bupivacaine Mpf 0.5% 30 ML VIAL (09:54)
--- NOTE | 2018-07-08 10:18 | RAD_ITS ---
STUDY: X-RAY CHEST REASON FOR EXAM: Male, 63 years old. Postoperative laparoscopic and Amilcar fundoplication. Possible pneumothorax. TECHNIQUE: Single AP portable view of the chest. COMPARISON: None. FINDINGS: EKG electrodes are seen. Minimal degree of right basilar atelectasis. There is no evidence of pneumothorax. There is no demonstrated pleural abnormality. Normal size heart. Normal mediastinum and sofie. Normal visualized pulmonary arteries. Normal visualized aortic arch and descending thoracic aorta. Normal visualized thoracic spine. Normal visualized ribs, clavicles, and shoulders. Widening of the paraspinal tissues at the level of the diaphragm suggestive of a small hiatal hernia or postoperative changes. RAD/Chest 1 View (Portable) IMPRESSION: No evidence of pneumothorax. Mild increased markings at the right lung base suggestive of atelectasis. Electronically Signed: Vel Hinkle, at 10:40 EDT , Service support ,
[2018-07-08] MEDS: Famotidine 20 MG Tablet PO (11:50)
[2018-07-08] MEDS: HYDROcodone Bitartrate/Apap 5/325 Tablet PO (11:50)
[2018-07-09 03:40] VITALS: BP 132/97; PULSE 69; RESP 16; TEMP 36.4; O2SAT 98
[2018-07-09] MEDS: Lactated Ringers 1,000 ML 30 ML IV (03:44)
[2018-07-09] MEDS: Acetaminophen 325 MG Tablet 650 MG PO (04:38)
--- NOTE | 2018-07-09 05:52 | PCM.PN.SRG ---
Subjective: No soreness in the epigastrium. Otherwise chest pain and breathing is improved. Hiccups. No burping. Minimal flatus. Enterally feels well. States clear liquids are progressing adequately - Physical Exam Lungs: Clear to auscultation, Normal air movement Abdomen: Bowel Sounds Present, Soft, - - Appropriate tenderness Vital Signs Temp Pulse Resp BP Pulse Ox 97.5 F L 69 16 132/97 H 98 07/09/18 03:40 07/09/18 03:40 07/09/18 03:40 07/09/18 03:40 07/09/18 03:40 Oxygen Flow Rate (L/min) 2 Oxygen Delivery Method Room Air Weight: 162 lb 7.691 oz Body Mass Index (BMI) 25.8 Intake and Output for Last 24 Hours 07/07/18 07/08/18 07/09/18 23:59 23:59 23:59 Intake Total 1400 / 1400 688 / 688 Balance 1400 / 1400 688 / 688 Medical Necessity - Tobacco Use Smoking Status: Former smoker Tobacco Use: Non-smoker Assessment/Plan All Active Problems (Last Reviewed 06/13/18 @ 08:53 by Courtney Reynaga) Screening for intestinal cancer (Acute) GERD with esophagitis (Acute) History of esophagogastroduodenoscopy (EGD) (Acute) Sleep apnea (Acute) GERD (gastroesophageal reflux disease) (Acute) I have fully discussed liquid diet with him for discharge with advancing as tolerates. He has had an opportunity to ask and have questions answered. I anticipate discharge this morning. Sammy Zaman M.D., F.A.C.S.
[2018-07-09] MEDS: Enoxaparin 40 MG/0.4 ML Syringe SC (06:37)
[2018-07-09 07:09] VITALS: BP 120/78; PULSE 50; RESP 16; TEMP 36.4; O2SAT 100
== END 2018-07-09 07:14 | disposition home or self-care (01) ==
LOC: SDC 09:55
PROVIDERS: Admitting Provider Surgery; Family Provider Family Medicine; PCP Family Medicine; Referring Provider Surgery; Visit Provider Surgery
PROC: (CPT 43325; principal; 2018-07-08 06:55)
DX: K21.0 Gastro-esophageal reflux disease with esophagitis (principal); K44.9 Diaphragmatic hernia without obstruction or gangrene; G47.30 Sleep apnea, unspecified; Z87.891 Personal history of nicotine dependence
CPT/HCPCS: 43280; 36415; 71045; 80048; 85027; 93005; 96372; 99218; J7120; G0378; G0379

== ENCOUNTER 2018-10-04 08:53 | Inpatient (IN) | payer OTHER, SELFPAY ==
[2018-07-08 05:43] VITALS: BMI 25.8
[2018-10-04 09:00] VITALS: BP 104/72; PULSE 54; RESP 16; TEMP 36.4; O2SAT 97; BMI 24.3
--- NOTE | 2018-10-04 10:03 | NURSING ---
Aware of being a fall risk and must ask for staff assist and and patient verbalized understanding.
[2018-10-04 10:20] LABS: Absolute Lymphocyte Count 1.42 X10^3/uL (0.83-4.51); Basophil# 0.01 X10^3/uL; Basophil% 0.2 % (0-1); Eosinophil# 0.08 X10^3/uL; Eosinophils% 1.6 % (0-5); Hematocrit 43.8 % (40-54); Hemoglobin 14.7 g/dL (13.0-16.5); Lymphocyte # 1.42 X10^3/ul (4.0); Lymphocyte % 27.5 % (19-41); Mean Corp Hgb Conc 33.6 g/dL (32-36); Mean Corpuscular Volume 95.2 fL (80-94); Mean Platelet Vol. 9.9 fl (6.2-12.0); Monocyte# 0.62 X10^3/uL; NRBC Flagged by Analyzer 0 % (0-5); Neutrophil % 58.1 % (47-70); Platelet Count 159 K/mm3 (150-450); RBC Distribution Width SD 42.1 fl (35.1-43.9); White Blood Count 5.2 K/mm3 (4.4-11.0)
[2018-10-04] MEDS: Acetaminophen 325 MG Tablet 650 MG PO (10:27)
[2018-10-04 10:52] LABS: Anion Gap 5 (5-15); BUN 14 mg/dL (7-18); BUN/Creat Ratio 12.5 RATIO (10-20); Calcium,Total 8.9 mg/dL (8.5-10.1); Chloride 106 mmol/L (98-107); Creatinine, Serum 1.12 mg/dL (0.70-1.30); EST Glomerular Filtration Rate 70 mL/min (>60); Est Glom Filt Rate - Afr Amer 85 mL/min (>60); Estimated Creatinine Clearance 63.12 ml/min; Glucose 92 mg/dL (74-106); Potassium 4.1 mmol/L (3.5-5.1); Sodium Level 141 mmol/L (136-145)
--- NOTE | 2018-10-04 11:22 | PCM.HP.STD ---
History of Present Illness Date of Admission: 10/04/18 Chief Complaint: cva The patient is a 63 year old right handed male who chris am, one week ago in [facility], reports he became sweaty and had high bp, noted garbled speech, life-flighted to [facility], ct showed a left ICH causing right hemiparesis, now significant improvement, now presents to [facility] acute rehab for therapy for goal of congregation of prior level of functioanl independence. healthy, no meds, no smoking, snoring, psg about 10yrs ago normal per . in [place] he was observed, improved, had pt, bp normalized and did not require requrie rx other than in the er. history of migraine, worse over past 4-5 weeks. no history of brain scan prior to bleed. Past Medical History Medical History: Medical History (Last Reviewed 10/04/18 @ 11:28 by Marvin Luna MD) Screening for intestinal cancer (Acute) Z12.10 GERD with esophagitis (Acute) K21.0 Sleep apnea (Acute) G47.30 GERD (gastroesophageal reflux disease) (Acute) K21.9 Allergies esomeprazole Allergy (Mild, Verified 08/07/18 14:33) Rash Home Medications: Ambulatory Orders Medication Instructions Recorded Famotidine [Pepcid] 20 mg PO DAILY 10/04/18 Hydrocodone Bitart/Apap 5-325 1 tab PO Q6H PRN PRN 10/04/18 [[place] 5MG-325MG] Levetiracetam [Keppra] 1,000 mg PO BID 10/04/18 Meclizine HCl 25 mg PO TID PRN 10/04/18 Ondansetron HCl [Zofran] 4 mg PO Q8H PRN 10/04/18 Surgical History: Surgical History (Last Reviewed 10/04/18 @ 11:28 by Marvin Luna MD) History of esophagogastroduodenoscopy (EGD) (Acute) Z98.890 Status post laparoscopic Tushar fundoplication Z98.890 07/14 Smoking Status: Former smoker - *Family History Maternal Family History: Family History (Last Reviewed 08/07/18 @ 14:33 by Rosalie Gardiner) Father Cancer History Items: Stroke Review of Systems Constitutional: Denies: Chills, Fever, Weight Change HEENT: Denies: Head Aches, Sinus Congestion, Sinus Drainage Cardiovascular: Denies: Chest Pain, Palpitations Respiratory: Denies: Cough, Shortness of breath at rest, Sputum production Gastrointestinal: Denies: Abdominal Pain, Nausea, Vomiting Genitourinary: Denies: Dysuria Musculoskeletal: Denies: Joint Pain, Joint Tenderness Skin: Denies: Rash, Wounds Neurological: Denies: Numbness, Tingling, Focal weakness Psychiatric: Denies: Anxiety, Depression, Homicidal Ideations, Suicidal Ideations Hematologic/ Lymphatic: Denies: Easy Bruising, Easy Bleeding VTE Information - Inpt Only VTE Present on Admission: Yes VTE Mechan Device Prophylaxis: SCD's - Physical Exam General: Alert, Cooperative, No apparent distress HEENT: PERRLA, EOMI Neurological: - - mild right central [place] mild right arm and leg discoord moderate to severe receptive and exp aphasia Vital Signs Temp Pulse Resp BP Pulse Ox 36.4 C L 54 L 16 104/72 97 10/04/18 09:00 10/04/18 09:00 10/04/18 09:00 10/04/18 09:00 10/04/18 09:00 Oxygen Delivery Method Room Air Weight: 70.307 kg Body Mass Index (BMI) 24.3 Laboratory Tests Past 24 Hrs 10/04/18 10/04/18 10:08 10:08 WBC 5.2 RBC 4.60 Hgb 14.7 Hct 43.8 MCV 95.2 H MCH 32.0 MCHC 33.6 RDW Std Deviation 42.1 RDW Coeff of [place] 12.0 Plt Count 159 MPV 9.9 Immature Gran % (Auto) 0.600 Neut % (Auto) 58.1 Lymph % (Auto) 27.5 Petroleum % (Auto) 12.0 H Eos % (Auto) 1.6 Baso % (Auto) 0.2 Absolute Neuts (auto) 3.0 Absolute Lymphs (auto) 1.42 Nucleated RBC % 0 Sodium 141 Potassium 4.1 Chloride 106 Carbon Dioxide 30.0 Anion Gap 5 BUN 14 Creatinine 1.12 Estim Creat Clear Calc 63.12 Est GFR (MDRD) Af Amer 85 Est GFR (MDRD) Non-Af 70 BUN/Creatinine Ratio 12.5 Glucose 92 Calcium 8.9 Current Home Med List Medication Instructions Recorded Confirmed Type Famotidine [Pepcid] 20 mg PO DAILY 10/04/18 10/04/18 History Hydrocodone Bitart/Apap 5-325 1 tab PO Q6H PRN PRN 10/04/18 10/04/18 History [[place] 5MG-325MG] Levetiracetam [Keppra] 1,000 mg PO BID 10/04/18 10/04/18 History Meclizine HCl 25 mg PO TID PRN 10/04/18 10/04/18 History Ondansetron HCl [Zofran] 4 mg PO Q8H PRN 10/04/18 10/04/18 History Current Medications Generic Name Dose Route Start Last Admin Trade Name Freq PRN Reason Stop Dose Admin Acetaminophen 650 mg 10/04/18 10:02 10/04/18 10:27 Tylenol PO 650 mg Q6H PRN PRN Administration PAIN Hydrocodone Bitart/Acetaminophen 1 tablet 10/04/18 09:20 [place] 5mg-325mg PO Q6H PRN PRN PAIN Bisacodyl 10 mg 10/04/18 09:21 Dulcolax RECTAL .PRN X 1 PRN Constipation Famotidine 20 mg 10/04/18 10:00 10/04/18 11:51 Pepcid PO 20 mg DAILY JOSEFINA Administration Levetiracetam 1,000 mg 10/04/18 10:00 10/04/18 11:51 Keppra Tablet PO 1,000 mg BID JOSEFINA Administration Lorazepam 0.5 mg 10/04/18 09:21 Ativan PO QHS PRN PRN Insomnia Magnesium Hydroxide 30 ml 10/04/18 09:21 Milk Of Magnesia PO .PRN X 1 PRN Constipation Meclizine HCl 25 mg 10/04/18 09:20 Antivert PO TID PRN prolonged dizziness Ondansetron HCl 4 mg 10/04/18 10:01 Zofran Odt PO Q8H PRN NAUSEA Senna/Docusate Sodium 2 tablet 10/04/18 09:21 Senokot-S, Tish-Colace PO BID PRN CONSTIPATION Assessment/Plan All Active Problems (Last Reviewed 10/04/18 @ 11:28 by Marvin Luna MD) Screening for intestinal cancer (Acute) GERD with esophagitis (Acute) History of esophagogastroduodenoscopy (EGD) (Acute) Sleep apnea (Acute) GERD (gastroesophageal reflux disease) (Acute) left ich, no history of ich, or family history. goal of rehab is congregation of functional independence. history of migraine worsening prior bleed, no previous brain scans. no history of sz, keppra prophylactically initiated. plan pt ot speech prn analgesics bowel protocol scds re-image prn and in a few weeks headache: prn analgesics, dc keppra (prophylactic) start vpa er 1000mg today.
--- NOTE | 2018-10-04 11:37 | PCM.RU.PYE ---
Admission Information Status Changes from Prescreening?: No changes Identified Actual Problem List:: Cognitve Impr/Memory Loss, Alteration in Nutrition, Mobility Impaired, Self Care Deficit, Ineffective Communication, Know.Dfct/Disease Process, Ineffect.D/C Plan r/t Psy Potential Problem List:: DVT, Bleeding, Infection, UTI, Aspiration, Falls, Skin Integrity, Depression Risk of Complications DVT: LMWH, JULIUS Hose, Sequential Compression Device Bleeding: Monitor Lab Values, Nursing to Teach Precautions for anti-coagulation therapy., Wound, if applicable, to be assessed every shift., Stroke patients assessed for lethargy or change in status. Infection: Clinical Staff to Monitor for S/S of infection:, S/S of infection include fever, redness, warmth, etc. Urinary Tract Infection: Monitor for frequency, burning, discomfort, or incontinence., Nursing will obtain urine sample for urinalysis and C&S when ordered. Aspiration: Clinical staff will monitor for coughing, drooling, congestion., Speech will evaluate swallowing and dsyphasia., Nursing will monitor patient swallowing during meals. Falls: Patient will be evaluated for Fall Precautions, Patient will be placed on Fall Precautions as indicated per protocol. Skin Breakdown: Nursing will assess skin daily using assessment tool., Nursing will place on Skin Breakdown Precautions as indicated. Pain: Clinical staff will assess patient's pain level per protocol., Medications will be given, if needed, and the pain level reassessed., Other methods: Massage, distraction, decrease stimulus, etc. used PRN. Plan of Care Patient requires physician specializing in physical medicine and rehab oversight to provide close medical supervision of rehab issues including: Pain Management, Sleep Problems, Bowel and Bladder, Medical and co-morbidity Management, DVT prophylaxis, Rehabilitation Leadership, Coordination of treatment team Patient needs Physical Therapy: For a minimum of 1 hour, At least 5 out of 7 days Patient needs Physical Therapy to improve:: Mobility, Mobility, Mobility, Strengthening, Transfers, Stretching, ROM, Endurance, Stairs, Gait, Balance Patient needs Occupational Therapy: For a minimum of 1 hour, At least 5 out of 7 days Patient needs Occupational Therapy to improve ADL's incl.: Eating, Grooming, Bathing, Dressing, Toileting, Toilet transfers, Community Reintegration, Higher functioning activities, Household tasks, Adaptive Equipment, Splinting, Other activities as determined Patient requires speech therapy: For a minimum of 1 hour, At least 5 out of 7 days Patient requires speech therapy for: Swallowing, Cognition, Language Skills, Compensatory Strategies Patient requires 24/ Rehabilitation Nursing for: Pain Issues, Identifying and preventing risk factors, Monitoring and reporting current medical conditions, Assisting with ambulation, transfer, and all ADL's, Teaching patients about disease process and medications, Family teaching, Providing safe environment, Bowel and Bladder Issues, Skin integrity, Medication Management Patient needs Education And Development Manager/ Case Management for: Discharge Planning, Arranging Home Equipment or Services, Family Interventions Patient needs Dietary and Nutrition Services for: Adequate Nutrition, Nutritional Supplements, Nutritional Education Goals Patient will remain: free from falls, or injury at time of discharge. Patient will perform bed mobility at: MOD I level of assist. Patient will complete transfers from bed to chair at: MOD I level of assist. Patient will ambulate: 100 feet, with MOD I assist, with LRD Patient will complete upper body dressing at: MOD I level of assist. Patient will complete lower body dressing at: MOD I level of assist. Patient will complete toileting at: MOD I level of assist. Patient will perform bathing at: MOD I level of assist. Patient will complete grooming at: MOD I level of assist. Patient will complete home management skills at: MOD I level of assist. Patient will achieve: 12 stairs, at MOD I assist Patient will have pain level of: of 3 or less Patient's skin will: remain intact, free from infection. Patient will receive: adequate nutrition. Discharge Planning Pt Prognosis for Sig. Practical Improv. w/in Reasonable Time: Good Anticipated D/C Destination: Home with Outpt Therapy Was Preadmission Assessment Accurate?: Yes
[2018-10-04] MEDS: levETIRAcetam 1,000 MG Tablet 1000 MG PO (11:51)
[2018-10-04] MEDS: Famotidine 20 MG Tablet PO (11:51)
--- NOTE | 2018-10-04 13:32 | CON.PCM_ITS ---
Problem List (1) Left-sided intracerebral hemorrhage Status: Acute (2) Screening for intestinal cancer Status: Acute (3) GERD with esophagitis Status: Acute (4) History of esophagogastroduodenoscopy (EGD) Status: Acute (5) Sleep apnea Status: Acute (6) GERD (gastroesophageal reflux disease) Status: Acute Qualifiers: Esophagitis presence: with esophagitis Qualified Code(s): K21.0 - Gastro- esophageal reflux disease with esophagitis Reason for Consult Date of Consultation: 10/04/18 Reason for Consultation: Transferred for acute rehab from [place], [place] History of Present Illness: The patient is a 63 year old M with history of possible sleep apnea with GERD is being transferred from acute care hospital in [place], [place] after he had sudden onset of headache, sweating and slurred speech with low volume about 1 week ago while camping. Patient was life flighted to [facility] where he was found large about 8 cm intracerebral hemorrhage in basal ganglia, temporal ICH with subfalcine herniation. Discussed with the patient's and mother in the room. As per the , there is much improvement in weakness of right upper and lower extremity. He also improvement in his speech. Patient was evaluated by physical, occupational speech therapies. Diet has been upgraded from mechanical to regular diet under supervision. Patient has a history of sleep apnea but as per , polysomnography was normal. Blood pressure is 104/72. Patient is running low heart rate, 54/min. Chart from however reviewed. Vitals stable, blood pressure 123/81, heart rate 48/min. Past Medical History Medical History: Medical History (Last Reviewed 10/04/18 @ 11:28 by Marvin Luna MD) Screening for intestinal cancer (Acute) Z12.10 GERD with esophagitis (Acute) K21.0 Sleep apnea (Acute) G47.30 GERD (gastroesophageal reflux disease) (Acute) K21.9 Allergies esomeprazole Allergy (Mild, Verified 08/07/18 14:33) Rash Home Medications: Ambulatory Orders Medication Instructions Recorded Famotidine [Pepcid] 20 mg PO DAILY 10/04/18 Hydrocodone Bitart/Apap 5-325 1 tab PO Q6H PRN PRN 10/04/18 [[place] 5MG-325MG] Levetiracetam [Keppra] 1,000 mg PO BID 10/04/18 Meclizine HCl 25 mg PO TID PRN 10/04/18 Ondansetron HCl [Zofran] 4 mg PO Q8H PRN 10/04/18 Surgical History: Surgical History (Last Reviewed 10/04/18 @ 11:28 by Marvin Luna MD) History of esophagogastroduodenoscopy (EGD) (Acute) Z98.890 Status post laparoscopic Tushar fundoplication Z98.890 07/14 Smoking Status: Former smoker - *Family History Maternal Family History: Family History (Last Reviewed 08/07/18 @ 14:33 by Rosalie Gardiner) Father Cancer History Items: Stroke Review of Systems Constitutional: Denies: Chills, Fever, Weight Change HEENT: Reports: Head Aches. Denies: Sinus Congestion, Sinus Drainage Cardiovascular: Denies: Chest Pain, Palpitations Respiratory: Denies: Cough, Shortness of breath at rest, Sputum production Gastrointestinal: Denies: Abdominal Pain, Nausea, Vomiting Genitourinary: Denies: Dysuria, Frequency Musculoskeletal: Denies: Joint Pain, Joint Tenderness Skin: Denies: Rash, Wounds Neurological: Reports: Balance problems, Double vision, Change in Speech, Slurred speech, Difficulty swallowing, Focal weakness, Incoordination. Denies: Numbness, Tingling Psychiatric: Denies: Anxiety, Depression, Homicidal Ideations, Suicidal Ideations Hematologic/ Lymphatic: Denies: Easy Bruising, Easy Bleeding Patient Problems: Active and Suspected Problems (Last Reviewed 10/04/18 @ 11:28 by Marvin Luna MD) Left-sided intracerebral hemorrhage (Acute) - Physical Exam General: Alert, Oriented x3, Cooperative HEENT: Atraumatic, PERRLA, EOMI, Normocephalic Neck: Supple, No JVD, Negative Carotid Bruits Lungs: Clear to auscultation, No rhonchi, No wheeze, No rales, Diminished - Air entry is diminished in bilateral lung bases. Cardiovascular: Regular Rhythm, Normal S1, Normal S2, No murmurs, Bradycardic Abdomen: Bowel Sounds Present, Soft, Non Tender, Non-Distended Extremities: No edema, Capillary Refill Less than 3 Seconds Skin: No rashes, No breakdown Musculoskeletal: No Tenderness to Palpation of Joints or Extremities Neurological: - - Weakness in right upper and lower extremity. Right upper extremity drifts but does not eat at the end of 10 seconds. Right lower extremity drift does not hit the bed at end of 5 seconds Low-volume, slurred speech. Speech output is low and difficult to understand. Psych/Mental Status: Normal Affect, Appropriate Vital Signs Temp Pulse Resp BP Pulse Ox 97.5 F L 54 L 16 104/72 97 10/04/18 09:00 10/04/18 09:00 10/04/18 09:00 10/04/18 09:00 10/04/18 09:00 Oxygen Delivery Method Room Air Weight: 155 lb Body Mass Index (BMI) 24.3 Assessment/Plan All Active Problems (Last Reviewed 10/04/18 @ 11:28 by Marvin Luna MD) Left-sided intracerebral hemorrhage (Acute) Screening for intestinal cancer (Acute) GERD with esophagitis (Acute) History of esophagogastroduodenoscopy (EGD) (Acute) Sleep apnea (Acute) GERD (gastroesophageal reflux disease) (Acute) The patient is a 63 year old M with history of possible sleep apnea with GERD is being transferred from acute care hospital in [place], [place] after he had sudden onset of headache, sweating and slurred speech with low volume about 1 week ago while camping. Patient was life flighted to [facility] where he was found large about 8 cm, left-sided intracerebral hemorrhage in basal ganglia, temporal ICH with subfalcine herniation. 1. Large left intracerebral hemorrhage and basal ganglia with subfalcine herniation: Patient is being admitted for acute rehab. PT OT speech and swallow evaluation and management. Blood pressure and glucose are controlled. On seizure prophylaxis with Depakote 2. Sinus bradycardia secondary to intracerebral hemorrhage: As compared to arrival, her heart rate improved from 48 to 54/min. Twelve-lead EKG ordered for tomorrow a.m. 3. GERD with history of esophagitis: 4. Possible history of sleep apnea: 5. Bowel and bladder care: On a stool softener. Pepcid 20 mg twice daily Active Medications Acetaminophen (Tylenol) 650 mg PO Q6H PRN PRN PRN Reason: PAIN Last Admin: 10/04/18 10:27 Dose: 650 mg Documented by: Hydrocodone Bitart/Acetaminophen ([place] 5mg-325mg) 1 tablet PO Q6H PRN PRN PRN Reason: PAIN Bisacodyl (Dulcolax) 10 mg RECTAL .PRN X 1 PRN PRN Reason: Constipation Divalproex Sodium (Depakote Er) 1,000 mg PO DAILY [facility] Famotidine (Pepcid) 20 mg PO DAILY [facility] Last Admin: 10/04/18 11:51 Dose: 20 mg Documented by: Lorazepam (Ativan) 0.5 mg PO QHS PRN PRN PRN Reason: Insomnia Magnesium Hydroxide (Milk Of Magnesia) 30 ml PO .PRN X 1 PRN PRN Reason: Constipation Meclizine HCl (Antivert) 25 mg PO TID PRN PRN Reason: prolonged dizziness Ondansetron HCl (Zofran Odt) 4 mg PO Q8H PRN PRN Reason: NAUSEA Senna/Docusate Sodium (Senokot-S, Tish-Colace) 2 tablet PO BID PRN PRN Reason: CONSTIPATION Laboratory Results 10/04/18 10:08: Sodium 141, Potassium 4.1, Chloride 106, Carbon Dioxide 30.0, Anion Gap 5, BUN 14, Creatinine 1.12, Estim Creat Clear Calc 63.12, Est GFR (MDRD) Af Amer 85, Est GFR (MDRD) Non-Af 70, BUN/Creatinine Ratio 12.5, Glucose 92, Calcium 8.9 10/04/18 10:08: WBC 5.2, RBC 4.60, Hgb 14.7, Hct 43.8, MCV 95.2 H, MCH 32.0, MCHC 33.6, RDW Std Deviation 42.1, RDW Coeff of [place] 12.0, Plt Count 159, MPV 9.9, Immature Gran % (Auto) 0.600, Neut % (Auto) 58.1, Lymph % (Auto) 27.5, [place] % (Auto) 12.0 H, Eos % (Auto) 1.6, Baso % (Auto) 0.2, Absolute Neuts (auto) 3.0, Absolute Lymphs (auto) 1.42, Nucleated RBC % 0 Code Visit Inpatient E&M: 88868 Init Hosp L2
[2018-10-04] MEDS: Divalproex (ER) 500 MG Tablet 1000 MG PO (14:48)
[2018-10-04 19:49] VITALS: BP 100/58; PULSE 57; RESP 16; TEMP 36.6; O2SAT 97
[2018-10-04] MEDS: HYDROcodone Bitartrate/Apap 5/325 Tablet PO (19:59)
[2018-10-04] MEDS: NYSTATIN 500,000 UNIT/5 ML UDC 500000 UNIT PO (19:59)
[2018-10-04 22:43] VITALS: BMI 24.3
[2018-10-05] MEDS: Acetaminophen 325 MG Tablet 650 MG PO (06:30)
[2018-10-05] MEDS: Divalproex (ER) 500 MG Tablet 1000 MG PO (07:51)
[2018-10-05] MEDS: Famotidine 20 MG Tablet PO (07:51)
[2018-10-05] MEDS: NYSTATIN 500,000 UNIT/5 ML UDC 500000 UNIT PO ×4 (07:51→20:20)
[2018-10-05 08:16] VITALS: BP 110/70; PULSE 50; RESP 16; TEMP 36.7; O2SAT 97
[2018-10-05 09:55] VITALS: BMI 24.3
[2018-10-05] MEDS: HYDROcodone Bitartrate/Apap 5/325 Tablet PO (10:40)
[2018-10-05 11:00] VITALS: O2SAT 97
[2018-10-05 21:00] VITALS: BP 102/70; PULSE 47; RESP 18; TEMP 36.6; O2SAT 97
[2018-10-05 23:44] VITALS: BMI 24.3
[2018-10-06] MEDS: Acetaminophen 325 MG Tablet 650 MG PO (06:02)
[2018-10-06 07:22] VITALS: O2SAT 96
[2018-10-06] MEDS: NYSTATIN 500,000 UNIT/5 ML UDC 500000 UNIT PO ×4 (07:39→20:58)
[2018-10-06] MEDS: Famotidine 20 MG Tablet PO (07:39)
[2018-10-06] MEDS: Divalproex (ER) 500 MG Tablet 1000 MG PO (07:39)
[2018-10-06 07:54] VITALS: BP 134/78; PULSE 51; RESP 18; TEMP 36.6; O2SAT 96
[2018-10-06 10:32] VITALS: BMI 24.3
--- NOTE | 2018-10-06 13:51 | PCM.PN.HOSP ---
Patient Problems: Active and Suspected Problems (Last Reviewed 10/04/18 @ 11:28 by Marvin Luna MD) Left-sided intracerebral hemorrhage (Acute) Subjective: Seen and examined. Clinical information updated to the patient's family, his mother and near the bedside. Vital signs are stable. Vitals/I&O's: Vital Signs Temp Pulse Resp BP Pulse Ox 97.9 F 51 L 18 134/78 H 96 10/06/18 07:54 10/06/18 07:54 10/06/18 07:54 10/06/18 07:54 10/06/18 07:54 Oxygen Delivery Method Room Air Weight: 155 lb Body Mass Index (BMI) 24.3 Intake and Output for Last 24 Hours 10/04/18 10/05/18 10/06/18 23:59 23:59 23:59 Intake Total 300 / 300 240 / 240 Balance 300 / 300 240 / 240 General: Alert, Oriented x3, Cooperative HEENT: Atraumatic, PERRLA, EOMI, Normocephalic Neck: Supple, No JVD, Negative Carotid Bruits Lungs: Clear to auscultation, Normal air movement, No rhonchi, No wheeze, No rales Cardiovascular: Regular rate, Regular Rhythm, Normal S1, Normal S2, No murmurs Abdomen: Bowel Sounds Present, Soft, Non Tender, Non-Distended Extremities: No edema, Capillary Refill Less than 3 Seconds Skin: No rashes, No breakdown Musculoskeletal: No Tenderness to Palpation of Joints or Extremities Neurological: Cranial nerves II-XII grossly intact, Deep Tendon Reflexes 2+/4 and Symmetrical, Neuro grossly intact, - - Motor exam right upper extremity 4+/5, right lower extremity 4/5, left upper and lower extremity normal. 5/5 Speech quality has improved. Speech is more clear. Psych/Mental Status: Normal Affect, Appropriate Current Medications Acetaminophen (Tylenol) 650 mg PO Q6H PRN PRN PRN Reason: PAIN Last Admin: 10/06/18 06:02 Dose: 650 mg Documented by: Hydrocodone Bitart/Acetaminophen ([place] 5mg-325mg) 1 tablet PO Q6H PRN PRN PRN Reason: PAIN Last Admin: 10/05/18 10:40 Dose: 1 tablet Documented by: Bisacodyl (Dulcolax) 10 mg RECTAL .PRN X 1 PRN PRN Reason: Constipation Divalproex Sodium (Depakote Er) 1,000 mg PO DAILY [facility] Last Admin: 10/06/18 07:39 Dose: 1,000 mg Documented by: Famotidine (Pepcid) 20 mg PO DAILY [facility] Last Admin: 10/06/18 07:39 Dose: 20 mg Documented by: Lorazepam (Ativan) 0.5 mg PO QHS PRN PRN PRN Reason: Insomnia Magnesium Hydroxide (Milk Of Magnesia) 30 ml PO .PRN X 1 PRN PRN Reason: Constipation Meclizine HCl (Antivert) 25 mg PO TID PRN PRN Reason: prolonged dizziness Nystatin (Nystatin) 500,000 unit PO 4X/DAY [facility] Last Admin: 10/06/18 07:39 Dose: 500,000 unit Documented by: Ondansetron HCl (Zofran Odt) 4 mg PO Q8H PRN PRN Reason: NAUSEA Senna/Docusate Sodium (Senokot-S, Tish-Colace) 2 tablet PO BID PRN PRN Reason: CONSTIPATION Medical Necessity - Tobacco Use Smoking Status: Former smoker Assessment/Plan All Active Problems (Last Reviewed 10/04/18 @ 11:28 by Marvin Luna MD) Left-sided intracerebral hemorrhage (Acute) Screening for intestinal cancer (Acute) GERD with esophagitis (Acute) History of esophagogastroduodenoscopy (EGD) (Acute) Sleep apnea (Acute) GERD (gastroesophageal reflux disease) (Acute) The patient is a 63 year old M with history of possible sleep apnea with GERD is being transferred from acute care hospital in [place], [place] after he had sudden onset of headache, sweating and slurred speech with low volume about 1 week ago while camping. Patient was life flighted to [facility] where he was found large about 8 cm, left-sided intracerebral hemorrhage in basal ganglia, temporal ICH with subfalcine herniation. 1. Large left intracerebral hemorrhage and basal ganglia with subfalcine herniation: Patient is being admitted for acute rehab. PT OT speech and swallow evaluation and management. Blood pressure and glucose are controlled. On seizure prophylaxis with Depakote. Patient is on regular diet. 2. Sinus bradycardia secondary to intracerebral hemorrhage: Heart rate is in 50s. Twelve-lead EKG on October 05, 2018 shows sinus bradycardia at 46 bpm. 3. GERD with history of esophagitis: On famotidine. Allergic to PPI. 4. Possible history of sleep apnea: 5. Bowel and bladder care: On a stool softener. Active Medications Acetaminophen (Tylenol) 650 mg PO Q6H PRN PRN PRN Reason: PAIN Last Admin: 10/04/18 10:27 Dose: 650 mg Documented by: Hydrocodone Bitart/Acetaminophen ([place] 5mg-325mg) 1 tablet PO Q6H PRN PRN PRN Reason: PAIN Bisacodyl (Dulcolax) 10 mg RECTAL .PRN X 1 PRN PRN Reason: Constipation Divalproex Sodium (Depakote Er) 1,000 mg PO DAILY JOSEFINA Famotidine (Pepcid) 20 mg PO DAILY JOSEFINA Last Admin: 10/04/18 11:51 Dose: 20 mg Documented by: Lorazepam (Ativan) 0.5 mg PO QHS PRN PRN PRN Reason: Insomnia Magnesium Hydroxide (Milk Of Magnesia) 30 ml PO .PRN X 1 PRN PRN Reason: Constipation Meclizine HCl (Antivert) 25 mg PO TID PRN PRN Reason: prolonged dizziness Ondansetron HCl (Zofran Odt) 4 mg PO Q8H PRN PRN Reason: NAUSEA Senna/Docusate Sodium (Senokot-S, Tish-Colace) 2 tablet PO BID PRN PRN Reason: CONSTIPATION Laboratory Results 10/04/18 10:08: Sodium 141, Potassium 4.1, Chloride 106, Carbon Dioxide 30.0, Anion Gap 5, BUN 14, Creatinine 1.12, Estim Creat Clear Calc 63.12, Est GFR (MDRD) Af Amer 85, Est GFR (MDRD) Non-Af 70, BUN/Creatinine Ratio 12.5, Glucose 92, Calcium 8.9 10/04/18 10:08: WBC 5.2, RBC 4.60, Hgb 14.7, Hct 43.8, MCV 95.2 H, MCH 32.0, MCHC 33.6, RDW Std Deviation 42.1, RDW Coeff of [place] 12.0, Plt Count 159, MPV 9.9, Immature Gran % (Auto) 0.600, Neut % (Auto) 58.1, Lymph % (Auto) 27.5, [place] % (Auto) 12.0 H, Eos % (Auto) 1.6, Baso % (Auto) 0.2, Absolute Neuts (auto) 3.0, Absolute Lymphs (auto) 1.42, Nucleated RBC % 0 Code Visit Inpatient E&M: 24678 Subs Hosp L2
[2018-10-06 20:50] VITALS: BP 108/68; PULSE 54; RESP 16; TEMP 36.6; O2SAT 97
[2018-10-06 22:03] VITALS: BMI 24.3
[2018-10-07 08:10] VITALS: BP 109/78; PULSE 58; RESP 16; TEMP 36.3; O2SAT 97
--- NOTE | 2018-10-07 09:16 | CT_ITS ---
STUDY: CT BRAIN WITHOUT CONTRAST REASON FOR EXAM: Male, 63 years old. History of intracranial hemorrhage. RADIATION DOSAGE (If Supplied By Facility): CTDIvol = ( 44.99 ) mGy, DLP = ( 796.11 ) mGycm TECHNIQUE: Transaxial CT imaging of the brain was performed without administration of intravenous contrast material. Individualized dose optimization techniques were used for this CT. COMPARISON: No relevant priors. FINDINGS: Normal soft tissue structures. Normal calvarium. There is a 5.8 cm x 2.7 cm intramural cerebral hematoma in the left caudate nucleus extending into the tail of the cardiac nucleus as well as in the deep aspect of the left frontal parietal and temporal lobes. There is evidence of surrounding edema with compression of the left lateral ventricle. There is shift of the midline from the left to right of 7.2 mm. Normal brainstem. Normal cerebellum. Normal visualized paranasal sinuses. CT/Brain/Head without Contrast IMPRESSION: Large left intracerebral hematoma with surrounding edema and mass effect. There is shift of the midline from left to right measuring 7.2 mm. Electronically Signed: Vel Hinkle, at 10:29 EDT , Service support ,
[2018-10-07] MEDS: Famotidine 20 MG Tablet PO (10:14)
[2018-10-07] MEDS: NYSTATIN 500,000 UNIT/5 ML UDC 500000 UNIT PO ×4 (10:15→21:33)
--- NOTE | 2018-10-07 11:16 | PN_ITS ---
Patient Problems: Active and Suspected Problems (Last Reviewed 10/04/18 @ 11:28 by Marvin Luna MD) Left-sided intracerebral hemorrhage (Acute) Subjective: Patient is a 63-year-old male admitted to the inpatient rehab unit following intracerebral hemorrhage Objective: GENERAL: cooperative HEENT: Atraumatic; EYES; Anicteric, Normal Conjunctiva NECK; supple, normal thyroid, RESPIRATORY: Diminished to auscultation CARDIOVASCULAR: Regular S1 S2, GI: soft, non-tender, normoactive bowel sounds, : No Renal angle tenderness; EXTREMITIES: No edema, no clubbing, MUSCULOSKELETAL: No Joint Tenderness; NEURO: Awake; right-sided weakness SKIN: No Rash PSYCH; flat affect Vitals/I&O's: Vital Signs Temp Pulse Resp BP Pulse Ox 97.4 F L 58 L 16 109/78 97 10/07/18 08:10 10/07/18 08:10 10/07/18 08:10 10/07/18 08:10 10/07/18 08:10 Oxygen Delivery Method Room Air Weight: 70.307 kg Body Mass Index (BMI) 24.3 Intake and Output for Last 24 Hours 10/05/18 10/06/18 10/07/18 23:59 23:59 23:59 Intake Total 240 / 240 Balance 240 / 240 Current Medications Acetaminophen (Tylenol) 650 mg PO Q6H PRN PRN PRN Reason: PAIN Last Admin: 10/06/18 06:02 Dose: 650 mg Documented by: Hydrocodone Bitart/Acetaminophen ([place] 5mg-325mg) 1 tablet PO Q6H PRN PRN PRN Reason: PAIN Last Admin: 10/05/18 10:40 Dose: 1 tablet Documented by: Bisacodyl (Dulcolax) 10 mg RECTAL .PRN X 1 PRN PRN Reason: Constipation Famotidine (Pepcid) 20 mg PO DAILY [facility] Last Admin: 10/07/18 10:14 Dose: 20 mg Documented by: Lorazepam (Ativan) 0.5 mg PO QHS PRN PRN PRN Reason: Insomnia Magnesium Hydroxide (Milk Of Magnesia) 30 ml PO .PRN X 1 PRN PRN Reason: Constipation Meclizine HCl (Antivert) 25 mg PO TID PRN PRN Reason: prolonged dizziness Nystatin (Nystatin) 500,000 unit PO 4X/DAY [facility] Last Admin: 10/07/18 10:15 Dose: 500,000 unit Documented by: Ondansetron HCl (Zofran Odt) 4 mg PO Q8H PRN PRN Reason: NAUSEA Senna/Docusate Sodium (Senokot-S, Tish-Colace) 2 tablet PO BID PRN PRN Reason: CONSTIPATION Medical Necessity - Tobacco Use Smoking Status: Former smoker Assessment/Plan All Active Problems (Last Reviewed 10/04/18 @ 11:28 by Marvin Luna MD) Left-sided intracerebral hemorrhage (Acute) Screening for intestinal cancer (Acute) GERD with esophagitis (Acute) History of esophagogastroduodenoscopy (EGD) (Acute) Sleep apnea (Acute) GERD (gastroesophageal reflux disease) (Acute) Patient is a 63-year-old male admitted to the inpatient rehab unit following intracerebral hemorrhage 1. Acute 8cm intracerebral hemorrhage in basal ganglia, temporal ICH with subfalcine herniation right-sided weakness 2. Sinus bradycardia 3. GERD with history of esophagitis patient is on H2 blockers 4. Suspected sleep apnea 5. DVT prophylaxis SCDs Code Visit Inpatient E&M: 24176 Subs Hosp L2
[2018-10-07 11:17] VITALS: O2SAT 94
--- NOTE | 2018-10-07 12:23 | NURSING ---
Spoke with Lauryn Duran at Dr Morrell office, [facility]. It is ok for pt pt to start DVT prophylaxis. Leatha VILLANUEVA made aware. New order for Lovenox 40mg daily.
--- NOTE | 2018-10-07 15:18 | PCM.PN.NEU ---
Patient Problems: Active and Suspected Problems (Last Reviewed 10/04/18 @ 11:28 by Marvin Luna MD) Left-sided intracerebral hemorrhage (Acute) Subjective: Dr. Morrell neurosurgeon contact, ok to start Lovenox [address] of brain ordered for re-evaluation of IPH which showed 5.8 cm x 2.7 cm intramural cerebral hematoma in the left caudate nucleus extending into the tail of the cardiac nucleus and of the left frontal parietal and temporal lobes, 7.2 cm mid line shift from left to right. Which compared to CT of head from outside hospital, shows improvement. Will repeat CT of brain without contrast on 10/10/18. Per recommendations by Dr. Morrell, repeat MRI without contrast in 6 weeks. Per nursing, no issues overnight. Tolerating therapies well. - Physical Exam General: Cooperative - Flat affect, only oriented to self, but aphasia and apraxia complicates assessment HEENT: Atraumatic, PERRLA Oral: Moist Mucosa Neck: Supple, No JVD Lungs: Clear to auscultation, Normal air movement Cardiovascular: Regular rate, Regular Rhythm Abdomen: Bowel Sounds Present, Soft, Non Tender Extremities: No clubbing, No cyanosis, No edema Neurological: Cranial nerves II-XII grossly intact, Deep Tendon Reflexes 2+/4 and Symmetrical, - - speech apraxia and aphasia, hypophonic. Motor strength: RUE 3/5, RLE 4/5. LUE/LLE 5/5 Psych/Mental Status: - - Flat, follow simple cues and directions, redirected mulitple times to complete tasks. Vital Signs Temp Pulse Resp BP Pulse Ox 97.4 F L 58 L 16 109/78 94 10/07/18 08:10 10/07/18 08:10 10/07/18 08:10 10/07/18 08:10 10/07/18 11:17 Oxygen Delivery Method Room Air Weight: 70.307 kg Body Mass Index (BMI) 24.3 Intake and Output for Last 24 Hours 10/05/18 10/06/18 10/07/18 23:59 23:59 23:59 Intake Total 240 / 240 Balance 240 / 240 Medical Necessity - Tobacco Use Smoking Status: Former smoker Assessment/Plan All Active Problems (Last Reviewed 10/04/18 @ 11:28 by Marvin Luna MD) Left-sided intracerebral hemorrhage (Acute) Screening for intestinal cancer (Acute) GERD with esophagitis (Acute) History of esophagogastroduodenoscopy (EGD) (Acute) Sleep apnea (Acute) GERD (gastroesophageal reflux disease) (Acute) A 63-year-old male with past medical history of GERD and migraines, who was admitted to [facility] debility secondary to left basal ganglia/temporal IPH, with a goal of returning home at or near his prior level of independence. In September 27, 2018 patient was camping in [place] and developed headache, diaphoretic, aphasic, right-sided facial droop, and right-sided weakness. Patient was life flighted to [place] emergency department in [facility] for a CT of the brain showed a large left basal ganglia/temporal intraparenchymal hemorrhage which measured 8 cm AP by 2.8 cm transverse and 3 cm craniocaudal with localized mass-effect, as well as generalized mass-effect and approximately 3 mm of subfalcine herniation. Blood pressures on admission was 150's/100's. Patient was not currently on any type of anticoagulation, aspirin, or other antiplatelets. Dr. Morrell neurosurgeon consulted, no surgery required. Blood pressure goal SBP <140, Keppra probably started for seizure prophylaxis, no seizure documentation, patient was not on Keppra to hospitalization. Patient lives with spouse, in a one level house with one step to enter, prior to admission was independent with all ADLs, mobility and driving. Plan - PT for mobility - OT for ADLs - ST for cognition/speech - Analgesics as needed - Left basal/temporal IPH repeat CT of brain 10/07/18, showed improvement which showed 5.8 cm x 2.7 cm intramural cerebral hematoma in the left caudate nucleus extending into the tail of the cardiac nucleus and of the left frontal parietal and temporal lobes, 7.2 cm mid line shift from left to right. Will repeat CT of brain 10/10/18 for re-evaluation of IPH. O.K to start DVT prophylaxis of lovenox per Dr. Morrell and for MRI of brain without contrast in 6 weeks. BP goal SBP <140. - GERD on - Migraines was started on depakote, discontinued - Seizure precautions was started on Keppra from outside hospital, no prior seizures, not indicated AED. Keppra D/C - GI/DVT prophylaxis on pepcid/lovenox, knee high ROSHNI georges - Medical management per hospitalist- consult - Fall precautions - Bowel protocol - F/U with neurosurgeon and PCP
[2018-10-07 17:00] VITALS: BMI 24.3
[2018-10-07 19:24] VITALS: BP 116/75; PULSE 54; RESP 16; TEMP 36.6; O2SAT 98
[2018-10-07 21:44] VITALS: BMI 24.3
[2018-10-07 22:00] VITALS: PULSE 54; RESP 16
[2018-10-08] MEDS: Enoxaparin 40 MG/0.4 ML Syringe SC (06:28)
[2018-10-08 07:00] VITALS: BP 131/77; PULSE 50; RESP 16; TEMP 36.4; O2SAT 98
[2018-10-08 10:00] VITALS: PULSE 50
[2018-10-08] MEDS: NYSTATIN 500,000 UNIT/5 ML UDC 500000 UNIT PO ×4 (11:06→21:04)
[2018-10-08] MEDS: Famotidine 20 MG Tablet PO (11:06)
--- NOTE | 2018-10-08 13:03 | PCM.PN.NEU ---
Patient Problems: Active and Suspected Problems (Last Reviewed 10/04/18 @ 11:28 by Marvin uLna MD) Left-sided intracerebral hemorrhage (Acute) Subjective: Per nursing, no issues overnight. Patient is tolerating therapies and no acute distress noted. - Physical Exam General: Alert, Cooperative, - - aphasia and apraxia complicates assessment HEENT: Atraumatic, PERRLA Oral: Moist Mucosa Neck: Supple, No JVD Lungs: Clear to auscultation, Normal air movement Cardiovascular: Regular rate, Regular Rhythm Abdomen: Bowel Sounds Present, Soft, Non Tender Extremities: No clubbing, No cyanosis, No edema Neurological: Cranial nerves II-XII grossly intact, Deep Tendon Reflexes 2+/4 and Symmetrical, - - Motor strength LUE/LLE 5/5, RUE 3/5, RLE 4/5. Speech apraxia and aphasia, hypophonic. Psych/Mental Status: Flat Affect, - - aware of self, has aphasia/apraxia, redirects and reorients easily, follows simple directions/cues, pleasant and cooperative Vital Signs Temp Pulse Resp BP Pulse Ox 97.6 F L 50 L 16 131/77 H 98 10/08/18 07:00 10/08/18 10:00 10/08/18 07:00 10/08/18 07:00 10/08/18 07:00 Oxygen Delivery Method Room Air Weight: 70.307 kg Body Mass Index (BMI) 24.3 Intake and Output for Last 24 Hours 10/06/18 10/07/18 10/08/18 23:59 23:59 23:59 Intake Total 480 / 480 240 / 240 Balance 480 / 480 240 / 240 Medical Necessity - Tobacco Use Smoking Status: Former smoker Assessment/Plan All Active Problems (Last Reviewed 10/04/18 @ 11:28 by Marvin Luna MD) Left-sided intracerebral hemorrhage (Acute) Screening for intestinal cancer (Acute) GERD with esophagitis (Acute) History of esophagogastroduodenoscopy (EGD) (Acute) Sleep apnea (Acute) GERD (gastroesophageal reflux disease) (Acute) A 63-year-old male with past medical history of GERD and migraines, who was admitted to [facility] debility secondary to left basal ganglia/temporal IPH, with a goal of returning home at or near his prior level of independence. In September 27, 2018 patient was camping in [place] and developed headache, diaphoretic, aphasic, right-sided facial droop, and right-sided weakness. Patient was life flighted to [place] emergency department in [facility] for a CT of the brain showed a large left basal ganglia/temporal intraparenchymal hemorrhage which measured 8 cm AP by 2.8 cm transverse and 3 cm craniocaudal with localized mass-effect, as well as generalized mass-effect and approximately 3 mm of subfalcine herniation. Blood pressures on admission was 150's/100's. Patient was not currently on any type of anticoagulation, aspirin, or other antiplatelets. Dr. Morrell neurosurgeon consulted, no surgery required. Blood pressure goal SBP <140, Keppra probably started for seizure prophylaxis, no seizure documentation, patient was not on Keppra to hospitalization. Patient lives with spouse, in a one level house with one step to enter, prior to admission was independent with all ADLs, mobility and driving. Plan - PT for mobility - OT for ADLs - ST for cognition/speech - Analgesics as needed - Left basal/temporal IPH repeat CT of brain 10/07/18, showed improvement which showed 5.8 cm x 2.7 cm intramural cerebral hematoma in the left caudate nucleus extending into the tail of the cardiac nucleus and of the left frontal parietal and temporal lobes, 7.2 cm mid line shift from left to right. Will repeat CT of brain 10/10/18 for re-evaluation of IPH. O.K to start DVT prophylaxis of lovenox per Dr. Morrell and for MRI of brain without contrast in 6 weeks. BP goal SBP <140. - GERD on - Migraines was started on depakote, discontinued - Seizure precautions was started on Keppra from outside hospital, no prior seizures, not indicated AED. Keppra D/C - GI/DVT prophylaxis on pepcid/lovenox, knee high lana hose, SCDs - Medical management per hospitalist- consult - Fall precautions - Bowel protocol - F/U with neurosurgeon and PCP
[2018-10-08 14:39] VITALS: BMI 24.3
--- NOTE | 2018-10-08 16:52 | CHAPLAIN ---
Type of Pastoral Visit _x__ Initial Visit ___ Follow-up Visit ___ On-call Visit ___ General Patient Visit ___ Spiritual Assessment ___ Family Conference ___ Bereavement ___ Rapid Response ___ Code Blue ___ Other (describe below) Pastoral Care Referral From _x__ Patient ___ Family ___ Nurse ___ Physician ___ Beef Skinner ___ Oncology Nurse Navigator ___ Other (describe below) Sacrament/Intervention _x__ Active listening ___ Anointing ___ Jewish ___ Bereavement ___ Communion ___ Kandy exploration ___ ___ Life review _x__ Prayer ___ Reconciliation ___ Sacrament of Sick _x__ Supportive presence ___ Wedding ___ Other (describe below) Pastoral Comments
[2018-10-08 22:00] VITALS: BP 115/78; PULSE 56; RESP 16; TEMP 36.8; O2SAT 97; BMI 24.3
[2018-10-09] MEDS: Enoxaparin 40 MG/0.4 ML Syringe SC (05:53)
[2018-10-09] MEDS: Acetaminophen 325 MG Tablet 650 MG PO ×2 (05:53→13:36)
[2018-10-09 07:40] VITALS: BP 126/80; PULSE 60; RESP 16; TEMP 36.9; O2SAT 98
[2018-10-09] MEDS: NYSTATIN 500,000 UNIT/5 ML UDC 500000 UNIT PO ×3 (09:31→16:51)
[2018-10-09] MEDS: Famotidine 20 MG Tablet PO (09:31)
[2018-10-09 10:30] VITALS: BMI 24.3
--- NOTE | 2018-10-09 11:37 | PCM.PN.NEU ---
Patient Problems: Active and Suspected Problems (Last Reviewed 10/04/18 @ 11:28 by Marvin Luna MD) Left-sided intracerebral hemorrhage (Acute) Subjective: Per nursing, spouse voiced wanting to start anti-depressant d/t noting more withdrawn and with flat affect, lexapro will be started. Patient tolerating therapies well. - Physical Exam General: Alert, Cooperative, - - self only, aphasia and apraxia complicates assessment HEENT: Atraumatic, PERRLA Oral: Moist Mucosa Neck: Supple, No JVD Lungs: Clear to auscultation, Normal air movement Cardiovascular: Regular rate, Regular Rhythm Abdomen: Bowel Sounds Present, Soft, Non Tender Extremities: No clubbing, No cyanosis, No edema Neurological: Cranial nerves II-XII grossly intact, Deep Tendon Reflexes 2+/4 and Symmetrical, - - Motor strength LUE/LLE 5/5, RUE/RLE 4/5. Speech apraxia and aphasia, hypophonic. Psych/Mental Status: Flat Affect, - - aware of self, has aphasia/apraxia, redirects and reorients easily, follows simple directions/cues, pleasant and cooperative Vital Signs Temp Pulse Resp BP Pulse Ox 98.4 F 60 16 126/80 H 98 10/09/18 07:40 10/09/18 07:40 10/09/18 07:40 10/09/18 07:40 10/09/18 07:40 Oxygen Delivery Method Room Air Weight: 65.7 kg Body Mass Index (BMI) 24.3 Intake and Output for Last 24 Hours 10/07/18 10/08/18 10/09/18 23:59 23:59 23:59 Intake Total 480 / 480 720 / 720 120 / 120 Balance 480 / 480 720 / 720 120 / 120 Medical Necessity - Tobacco Use Smoking Status: Former smoker Assessment/Plan All Active Problems (Last Reviewed 10/04/18 @ 11:28 by Marvin Luna MD) Left-sided intracerebral hemorrhage (Acute) Screening for intestinal cancer (Acute) GERD with esophagitis (Acute) History of esophagogastroduodenoscopy (EGD) (Acute) Sleep apnea (Acute) GERD (gastroesophageal reflux disease) (Acute) A 63-year-old male with past medical history of GERD and migraines, who was admitted to [facility] debility secondary to left basal ganglia/temporal IPH, with a goal of returning home at or near his prior level of independence. In September 27, 2018 patient was camping in [place] and developed headache, diaphoretic, aphasic, right-sided facial droop, and right-sided weakness. Patient was life flighted to [place] emergency department in [facility] for a CT of the brain showed a large left basal ganglia/temporal intraparenchymal hemorrhage which measured 8 cm AP by 2.8 cm transverse and 3 cm craniocaudal with localized mass-effect, as well as generalized mass-effect and approximately 3 mm of subfalcine herniation. Blood pressures on admission was 150's/100's. Patient was not currently on any type of anticoagulation, aspirin, or other antiplatelets. Dr. Morrell neurosurgeon consulted, no surgery required. Blood pressure goal SBP <140, Keppra probably started for seizure prophylaxis, no seizure documentation, patient was not on Keppra to hospitalization. Patient lives with spouse, in a one level house with one step to enter, prior to admission was independent with all ADLs, mobility and driving. Plan - PT for mobility - OT for ADLs - ST for cognition/speech - Analgesics as needed - Left basal/temporal IPH repeat CT of brain 10/07/18, showed improvement which showed 5.8 cm x 2.7 cm intramural cerebral hematoma in the left caudate nucleus extending into the tail of the cardiac nucleus and of the left frontal parietal and temporal lobes, 7.2 cm mid line shift from left to right. Will repeat CT of brain 10/10/18 for re-evaluation of IPH. O.K to start DVT prophylaxis of lovenox per Dr. Morrell and for MRI of brain without contrast in 6 weeks. BP goal SBP <140. - GERD on pepcid - Migraines was started on depakote, discontinued - Seizure precautions was started on Keppra from outside hospital, no prior seizures, not indicated AED. Keppra D/C - Depression on lexapro - GI/DVT prophylaxis on pepcid/lovenox, knee high lana hose, SCDs - Medical management per hospitalist- consult - Fall precautions - Bowel protocol - F/U with neurosurgeon and PCP
[2018-10-09] MEDS: Escitalopram Oxalate 10 MG Tablet PO (13:38)
--- NOTE | 2018-10-09 14:51 | PCM.PN.HOSP ---
Patient Problems: Active and Suspected Problems (Last Reviewed 10/04/18 @ 11:28 by Marvin Luna MD) Left-sided intracerebral hemorrhage (Acute) Subjective: Patient was started on SSRI as a result of significant flat affect Objective: GENERAL: cooperative HEENT: Atraumatic; EYES; Anicteric, Normal Conjunctiva NECK; supple, normal thyroid, RESPIRATORY: Diminished to auscultation CARDIOVASCULAR: Regular S1 S2, GI: soft, non-tender, normoactive bowel sounds, : No Renal angle tenderness; EXTREMITIES: No edema, no clubbing, MUSCULOSKELETAL: No Joint Tenderness; NEURO: Awake; right-sided weakness SKIN: No Rash PSYCH; flat affect Vitals/I&O's: Vital Signs Temp Pulse Resp BP Pulse Ox 98.4 F 60 16 126/80 H 98 10/09/18 07:40 10/09/18 07:40 10/09/18 07:40 10/09/18 07:40 10/09/18 07:40 Oxygen Delivery Method Room Air Weight: 65.7 kg Body Mass Index (BMI) 24.3 Intake and Output for Last 24 Hours 10/07/18 10/08/18 10/09/18 23:59 23:59 23:59 Intake Total 480 / 480 720 / 720 280 / 280 Balance 480 / 480 720 / 720 280 / 280 Current Medications Acetaminophen (Tylenol) 650 mg PO Q6H PRN PRN PRN Reason: PAIN Last Admin: 10/09/18 13:36 Dose: 650 mg Documented by: Hydrocodone Bitart/Acetaminophen ([place] 5mg-325mg) 1 tablet PO Q6H PRN PRN PRN Reason: PAIN Last Admin: 10/05/18 10:40 Dose: 1 tablet Documented by: Bisacodyl (Dulcolax) 10 mg RECTAL .PRN X 1 PRN PRN Reason: Constipation Enoxaparin Sodium (Lovenox) 40 mg SC DAILY@0600 [facility] Last Admin: 10/09/18 05:53 Dose: 40 mg Documented by: Escitalopram Oxalate (Lexapro) 10 mg PO DAILY [facility] Last Admin: 10/09/18 13:38 Dose: 10 mg Documented by: Famotidine (Pepcid) 20 mg PO DAILY [facility] Last Admin: 10/09/18 09:31 Dose: 20 mg Documented by: Lorazepam (Ativan) 0.5 mg PO QHS PRN PRN PRN Reason: Insomnia Magnesium Hydroxide (Milk Of Magnesia) 30 ml PO .PRN X 1 PRN PRN Reason: Constipation Meclizine HCl (Antivert) 25 mg PO TID PRN PRN Reason: prolonged dizziness Nystatin (Nystatin) 500,000 unit PO 4X/DAY [facility] Last Admin: 10/09/18 13:38 Dose: 500,000 unit Documented by: Senna/Docusate Sodium (Senokot-S, Tish-Colace) 2 tablet PO BID PRN PRN Reason: CONSTIPATION Medical Necessity - Tobacco Use Smoking Status: Former smoker Assessment/Plan All Active Problems (Last Reviewed 10/04/18 @ 11:28 by Marvin Luna MD) Left-sided intracerebral hemorrhage (Acute) Screening for intestinal cancer (Acute) GERD with esophagitis (Acute) History of esophagogastroduodenoscopy (EGD) (Acute) Sleep apnea (Acute) GERD (gastroesophageal reflux disease) (Acute) Patient is a 63-year-old male admitted to the inpatient rehab unit following intracerebral hemorrhage 1. Acute 8cm intracerebral hemorrhage in basal ganglia, temporal ICH with subfalcine herniation right-sided weakness 2. Sinus bradycardia; remains stable 3. GERD with history of esophagitis patient is on H2 blockers 4. Suspected sleep apnea 5. Depression patient started on SSRI 6. DVT prophylaxis SCDs Code Visit Inpatient E&M: 86955 Subs Hosp L2
--- NOTE | 2018-10-09 16:16 | NURSING ---
and patient aware of new order for Lexapro.
[2018-10-09 19:35] VITALS: BP 127/74; PULSE 72; RESP 17; TEMP 36.8; O2SAT 97
[2018-10-09] MEDS: Senna/Docusate Sodium 1 Tablet 2 TABLET PO (20:56)
[2018-10-09 21:05] VITALS: BMI 24.3
[2018-10-09 22:00] VITALS: PULSE 72; RESP 17
--- NOTE | 2018-10-10 06:00 | CT_ITS ---
STUDY: CT BRAIN WITHOUT CONTRAST REASON FOR EXAM: Male, 63 years old. History intracerebral hemorrhage RADIATION DOSAGE (If Supplied By Facility): CTDIvol = ( 44.99 ) mGy, DLP = ( 829.85 ) mGycm TECHNIQUE: Transaxial CT imaging of the brain was performed without administration of intravenous contrast material. Individualized dose optimization techniques were used for this CT. COMPARISON: Head CT 10/07/2018 FINDINGS: There is expected evolution with slight decrease in size of the intracerebral hematoma involving the left frontal, parietal and temporal lobes and left basal ganglia. Hematoma measured 5.6 x 2.7 cm and now measures by 5.6 x 2.5 cm. There is slight decreased density within the hematoma. There are no new areas of hemorrhage. There is no significant change in the surrounding edema. There is stable compression on the left lateral ventricle. There is stable midline shift left to right of approximately 7.2 mm.. Normal calvarium. . Normal brainstem. Normal cerebellum. . There is mild mucosal thickening within the paranasal sinuses CT/Brain/Head without Contrast IMPRESSION: expected evolution with slight decrease in size of the intracerebral hematoma involving the left frontal, parietal and temporal lobes and left basal ganglia. The hematoma is slightly smaller in size and slightly less dense. No new areas of hemorrhage, stable mass effect on the left lateral ventricle stable [id number] midline shift of 7.2 mm. Mild inflammatory changes within the paranasal sinuses Electronically Signed: Sammy Monsalve, at 6:22 EDT Tel , Service support ,
[2018-10-10] MEDS: Enoxaparin 40 MG/0.4 ML Syringe SC (06:09)
[2018-10-10 08:06] VITALS: BP 130/79; PULSE 54; RESP 16; TEMP 36.6; O2SAT 96
[2018-10-10] MEDS: Famotidine 20 MG Tablet PO (08:22)
[2018-10-10] MEDS: Escitalopram Oxalate 10 MG Tablet PO (08:22)
--- NOTE | 2018-10-10 09:22 | PN.NEURO_ITS ---
Patient Problems: Active and Suspected Problems (Last Reviewed 10/04/18 @ 11:28 by Marvin Luna MD) Left-sided intracerebral hemorrhage (Acute) Subjective: Staffed meeting today. Further details per OT/ST/PT per notes. All questions answered. Repeat CT of brain showed improvement from last CT on 10/07/18, which showed Hematoma measured 5.6 x 2.7 cm and now measures by 5.6 x 2.5 cm. No new areas of hemorrhage, stable mass effect on the left lateral ventricle stable [id number] midline shift of 7.2 mm. - Physical Exam General: Alert - x 2, self and place, did not state correct year-aphasia and apraxia HEENT: Atraumatic, PERRLA Oral: Moist Mucosa Neck: Supple, No JVD Lungs: Clear to auscultation, Normal air movement Cardiovascular: Regular rate, Regular Rhythm Abdomen: Bowel Sounds Present, Soft, Non Tender Extremities: No clubbing, No cyanosis, No edema Neurological: Cranial nerves II-XII grossly intact, Deep Tendon Reflexes 2+/4 and Symmetrical, Motor Exam 5/5 strength throughout - excpet RUE 4/5 Psych/Mental Status: Appropriate, Flat Affect, - - alert and oriented to self and place, has apraxia and aphasia - improving redirects easily, follows commands, cooperative Vital Signs Temp Pulse Resp BP Pulse Ox 97.8 F 54 L 16 130/79 H 96 10/10/18 08:06 10/10/18 08:06 10/10/18 08:06 10/10/18 08:06 10/10/18 08:06 Oxygen Delivery Method Room Air Weight: 65.7 kg Body Mass Index (BMI) 24.3 Intake and Output for Last 24 Hours 10/08/18 10/09/18 10/10/18 23:59 23:59 23:59 Intake Total 720 / 720 280 / 280 Balance 720 / 720 280 / 280 Medical Necessity - Tobacco Use Smoking Status: Former smoker Assessment/Plan All Active Problems (Last Reviewed 10/04/18 @ 11:28 by Marvin Luna MD) Left-sided intracerebral hemorrhage (Acute) Screening for intestinal cancer (Acute) GERD with esophagitis (Acute) History of esophagogastroduodenoscopy (EGD) (Acute) Sleep apnea (Acute) GERD (gastroesophageal reflux disease) (Acute) A 63-year-old male with past medical history of GERD and migraines, who was admitted to [facility] debility secondary to left basal ganglia/temporal IPH, with a goal of returning home at or near his prior level of independence. In September 27, 2018 patient was camping in [place] and developed headache, diaphoretic, aphasic, right-sided facial droop, and right-sided weakness. Patient was life flighted to [place] emergency department in [facility] for a CT of the brain showed a large left basal ganglia/temporal intraparenchymal hemorrhage which measured 8 cm AP by 2.8 cm transverse and 3 cm craniocaudal with localized mass-effect, as well as generalized mass-effect and approximately 3 mm of subfalcine herniation. Blood pressures on admission was 150's/100's. Patient was not currently on any type of anticoagulation, aspirin, or other antiplatelets. Dr. Morrell neurosurgeon consulted, no surgery required. Blood pressure goal SBP <140, Keppra probably started for seizure prophylaxis, no seizure documentation, patient was not on Keppra to hospitalization. Patient lives with spouse, in a one level house with one step to enter, prior to admission was independent with all ADLs, mobility and driving. Plan - PT for mobility - OT for ADLs - ST for cognition/speech - Analgesics as needed - Left basal/temporal IPH repeat CT of brain on 10/10/2018 showed improvement from last CT on 10/07/18, which showed Hematoma measured 5.6 x 2.7 cm and now measures by 5.6 x 2.5 cm. No new areas of hemorrhage, stable mass effect on the left lateral ventricle stable [id number] midline shift of 7.2 mm. O.K to start DVT prophylaxis of lovenox per Dr. Morrell and for MRI of brain without contrast in 6 weeks. BP goal SBP <140. - GERD on pepcid - Migraines was started on depakote, discontinued - Seizure precautions was started on Keppra from outside hospital, no prior seizures, not indicated AED. Keppra D/C - Depression on lexapro - GI/DVT prophylaxis on pepcid/lovenox, knee high lana hose, SCDs - Medical management per hospitalist- consult - Fall precautions - Bowel protocol - F/U with neurosurgeon and PCP
--- NOTE | 2018-10-10 10:37 | CASEMGMT ---
Social Work IDT met with patient and for Team Meeting. Discussed patient's progress in therapy. Patient still suffering from expressive aphasia, but is improving. Pt is improving with following directions, sequencing and word retrieval. Physically pt is doing well walking with a quad cane on all surfaces and multitasking at SBA. The goal is to have pt return to baseline using no device and speech improve before returning home with . Explained insurance update 10/11 and continued stay is not guaranteed. understands and would like him to follow up with PT/OT/ST outpatient at [facility] or [facility] when discharged. Will continue to follow. Kathy Benz, [employer]
[2018-10-10 11:06] VITALS: BMI 24.3
[2018-10-10 19:14] VITALS: BP 120/83; PULSE 63; RESP 16; TEMP 36.4; O2SAT 97
[2018-10-11] MEDS: Enoxaparin 40 MG/0.4 ML Syringe SC (06:40)
[2018-10-11 08:56] VITALS: BP 110/59; PULSE 57; RESP 16; TEMP 36.7; O2SAT 96
[2018-10-11] MEDS: Escitalopram Oxalate 10 MG Tablet PO (09:04)
[2018-10-11] MEDS: Famotidine 20 MG Tablet PO (09:04)
--- NOTE | 2018-10-11 10:37 | PCM.PN.HOSP ---
Patient Problems: Active and Suspected Problems (Last Reviewed 10/04/18 @ 11:28 by Marvin Luna MD) Left-sided intracerebral hemorrhage (Acute) Subjective: Patient seen his aphasia and right-sided weakness continues to improve. His affect however remains significantly flat. Objective: GENERAL: cooperative HEENT: Atraumatic; EYES; Anicteric, Normal Conjunctiva NECK; supple, normal thyroid, RESPIRATORY: Diminished to auscultation CARDIOVASCULAR: Regular S1 S2, GI: soft, non-tender, normoactive bowel sounds, : No Renal angle tenderness; EXTREMITIES: No edema, no clubbing, MUSCULOSKELETAL: No Joint Tenderness; NEURO: Awake; right-sided weakness SKIN: No Rash PSYCH; flat affect Vitals/I&O's: Vital Signs Temp Pulse Resp BP Pulse Ox 98.1 F 57 L 16 110/59 L 96 10/11/18 08:56 10/11/18 08:56 10/11/18 08:56 10/11/18 08:56 10/11/18 08:56 Oxygen Delivery Method Room Air Weight: 65.7 kg Body Mass Index (BMI) 24.3 Intake and Output for Last 24 Hours 10/09/18 10/10/18 10/11/18 23:59 23:59 23:59 Intake Total 280 / 280 240 / 240 260 / 260 Output Total 250 / 250 Balance 280 / 280 -10 / -10 260 / 260 Current Medications Acetaminophen (Tylenol) 650 mg PO Q6H PRN PRN PRN Reason: PAIN Last Admin: 10/09/18 13:36 Dose: 650 mg Documented by: Hydrocodone Bitart/Acetaminophen ([place] 5mg-325mg) 1 tablet PO Q6H PRN PRN PRN Reason: PAIN Last Admin: 10/05/18 10:40 Dose: 1 tablet Documented by: Bisacodyl (Dulcolax) 10 mg RECTAL .PRN X 1 PRN PRN Reason: Constipation Enoxaparin Sodium (Lovenox) 40 mg SC DAILY@0600 [facility] Last Admin: 10/11/18 06:40 Dose: 40 mg Documented by: Escitalopram Oxalate (Lexapro) 10 mg PO DAILY [facility] Last Admin: 10/11/18 09:04 Dose: 10 mg Documented by: Famotidine (Pepcid) 20 mg PO DAILY [facility] Last Admin: 10/11/18 09:04 Dose: 20 mg Documented by: Lorazepam (Ativan) 0.5 mg PO QHS PRN PRN PRN Reason: Insomnia Magnesium Hydroxide (Milk Of Magnesia) 30 ml PO .PRN X 1 PRN PRN Reason: Constipation Meclizine HCl (Antivert) 25 mg PO TID PRN PRN Reason: prolonged dizziness Senna/Docusate Sodium (Senokot-S, Tihs-Colace) 2 tablet PO BID PRN PRN Reason: CONSTIPATION Last Admin: 10/09/18 20:56 Dose: 2 tablet Documented by: Medical Necessity - Tobacco Use Smoking Status: Former smoker Assessment/Plan All Active Problems (Last Reviewed 10/04/18 @ 11:28 by Marvin Luna MD) Left-sided intracerebral hemorrhage (Acute) Screening for intestinal cancer (Acute) GERD with esophagitis (Acute) History of esophagogastroduodenoscopy (EGD) (Acute) Sleep apnea (Acute) GERD (gastroesophageal reflux disease) (Acute) Patient is a 63-year-old male admitted to the inpatient rehab unit following intracerebral hemorrhage 1. Acute 8cm intracerebral hemorrhage in basal ganglia, temporal ICH with subfalcine herniation right-sided weakness patient is tolerating PT as expected. 2. Sinus bradycardia; remains stable 3. GERD with history of esophagitis patient is on H2 blockers 4. Suspected sleep apnea 5. Depression patient started on SSRI 6. DVT prophylaxis SCDs Active Medications Acetaminophen (Tylenol) 650 mg PO Q6H PRN PRN PRN Reason: PAIN Last Admin: 10/09/18 13:36 Dose: 650 mg Documented by: Hydrocodone Bitart/Acetaminophen ([place] 5mg-325mg) 1 tablet PO Q6H PRN PRN PRN Reason: PAIN Last Admin: 10/05/18 10:40 Dose: 1 tablet Documented by: Bisacodyl (Dulcolax) 10 mg RECTAL .PRN X 1 PRN PRN Reason: Constipation Enoxaparin Sodium (Lovenox) 40 mg SC DAILY@0600 [facility] Last Admin: 10/11/18 06:40 Dose: 40 mg Documented by: Escitalopram Oxalate (Lexapro) 10 mg PO DAILY [facility] Last Admin: 10/11/18 09:04 Dose: 10 mg Documented by: Famotidine (Pepcid) 20 mg PO DAILY [facility] Last Admin: 10/11/18 09:04 Dose: 20 mg Documented by: Lorazepam (Ativan) 0.5 mg PO QHS PRN PRN PRN Reason: Insomnia Magnesium Hydroxide (Milk Of Magnesia) 30 ml PO .PRN X 1 PRN PRN Reason: Constipation Meclizine HCl (Antivert) 25 mg PO TID PRN PRN Reason: prolonged dizziness Senna/Docusate Sodium (Senokot-S, Tish-Colace) 2 tablet PO BID PRN PRN Reason: CONSTIPATION Last Admin: 10/09/18 20:56 Dose: 2 tablet Documented by: Code Visit Inpatient E&M: 39519 Subs Hosp L2
[2018-10-11 11:47] VITALS: BMI 24.3
--- NOTE | 2018-10-11 13:07 | CASEMGMT ---
Addendum entered by Kathy Benz 10/11/18 16:00: Pt and are requesting to DC 10/12. IDT agreeable. Original Note: Social Work Insurance issued LCD 10/13 for pt. Spoke with who is requesting to DC pt 10/13. and pt requesting outpatient therapy at [facility] in [place] for PT/OT/ST. Scheduled appts with all 3 disciplines for 10/16. aware. IDT aware of DC. No DME needs. PHQ-9 completed and stroke support resources were given. Plan: DC home with 10/13 with outpatient PT/OT/ST. No DME needs. Kathy Benz, [employer]PERATIONS SPECIALIST
--- NOTE | 2018-10-11 15:42 | PCM.DC ---
- Discharge Diagnoses Current Active Problems: Current Active and Chronic Problems (Last Reviewed 10/04/18 @ 11:28 by Marvin Luna MD) Left-sided intracerebral hemorrhage (Acute) Reason(s) for Visit for Discharge Instructions: Debility secondary to Left basal/temporal IPH You will use the following diet at home:: Regular Your food should be the consistency of: Regular Your liquids should be the consistency of: Regular/Thin Discharge Activity: Return to Normal Activity, May Not Drive, May Shower Weight Bearing Status: Weight bearing as tolerated Call your doctor if you observe: Fever of 101 or Higher, Coldness, Increased Pain, Numbness or Tingling, Change in Color, Inability to urinate, Inability to have a bowel movement, Shortness of breath, Dizziness, Fainting spells, Swelling in the ankles, Chest pain, Prolonged hiccoughing, Increased palpitations (irregular heartbeat), Calf discomfort, Uncontrolled pain Additional Instructions: Blood pressure goal <140/90. Please take CD ROM of CT scans of brain to Dr. Charles appt. Allergies/Adverse Reactions: Allergies esomeprazole Allergy (Mild, Verified 08/07/18 14:33) Rash Tetracyclines Adverse Reaction (Verified 10/04/18 18:26) Unknown Medications to take at Discharge Acetaminophen [Tylenol Tablet] 650 mg PO Q6H PRN PRN tablet 10/11/18 Escitalopram Oxalate [Lexapro] 10 mg PO DAILY #30 tab 10/11/18 The following prescriptions were given: Escitalopram Oxalate [Lexapro] 10 mg PO DAILY #30 tab Transmission Status: Pending to [id number] Primary Care Physician: Lidia Perry PA-C [Primary Care Provider] - Test Results: Test results from this visit will be discussed in further detail at your follow-up appointment, if applicable. Please Follow Up With: [facility] - physical/occupational/speech Please Follow Up With: Dr. Charles - [phone] When: 10/18/2018 @ 9:30 a.m. Please Follow Up With: Lidia Perry PA-C When: 10/17/2018 @ 11:10 a.m. Proposed Discharge Date: 10/13/18
--- NOTE | 2018-10-11 15:49 | PCM.RU.DC ---
Rehab Discharge Summary DATE OF ADMISSION: 10/04/18 DATE OF DISCHARGE: 10/12/18 - Rehab Diagnosis Debility secondary to Left basal/temporal IPH Patient Problems: Active and Suspected Problems (Last Reviewed 10/04/18 @ 11:28 by Marvin Luna MD) Left-sided intracerebral hemorrhage (Acute) Subjective: Per nursing, no issues overnight. Patient tolerating therapies well. Patient will be discharged home on 10/12/18. - Physical Exam General: Alert - aware of self and place, has aphasia and apraxia, Cooperative, - HEENT: Atraumatic, PERRLA Oral: Moist Mucosa Neck: Supple, No JVD Lungs: Clear to auscultation, Normal air movement Cardiovascular: Regular rate, Regular Rhythm Abdomen: Bowel Sounds Present, Soft, Non Tender Extremities: No clubbing, No cyanosis, No edema Skin: No rashes, No breakdown Neurological: Cranial nerves II-XII grossly intact, Deep Tendon Reflexes 2+/4 and Symmetrical, Motor Exam 5/5 strength throughout - except RUE 4/5 Psych/Mental Status: Normal Affect, Appropriate, - - alert and oriented to self and place, redirects easily, follows commands, cooperative. has apraxia and aphasia Vital Signs Temp Pulse Resp BP Pulse Ox 98.1 F 57 L 16 110/59 L 96 10/11/18 08:56 10/11/18 08:56 10/11/18 08:56 10/11/18 08:56 10/11/18 08:56 Oxygen Delivery Method Room Air Weight: 65.7 kg Body Mass Index (BMI) 24.3 Intake and Output for Last 24 Hours 10/09/18 10/10/18 10/11/18 23:59 23:59 23:59 Intake Total 280 / 280 240 / 240 260 / 260 Output Total 250 / 250 Balance 280 / 280 -10 / -10 260 / 260 Discharge Diet: No Restrictions Discharge Activity: Return to Normal Activity, May Not Drive, May Shower Weight Bearing Status: Weight bearing as tolerated Call your doctor if you observe: Fever of 101 or Higher, Coldness, Increased Pain, Numbness or Tingling, Change in Color, Inability to urinate, Inability to have a bowel movement, Shortness of breath, Dizziness, Fainting spells, Swelling in the ankles, Chest pain, Prolonged hiccoughing, Increased palpitations (irregular heartbeat), Calf discomfort, Uncontrolled pain Home Medications: Medications to take at Discharge Acetaminophen [Tylenol Tablet] 650 mg PO Q6H PRN PRN tab 10/11/18 Escitalopram Oxalate [Lexapro] 10 mg PO DAILY #30 tab 10/11/18 Following Prescrptions Were Given to Patient: Escitalopram Oxalate [Lexapro] 10 mg PO DAILY #30 tab Transmission Status: Received by [id number] Primary Care Physician: Lidia Perry PA-C [Primary Care Provider] - Please Follow Up With: [facility] - physical/occupational/speech Please Follow Up With: Dr. Charles - [phone] When: 10/18/2018 @ 9:30 a.m. Please Follow Up With: Lidia Perry PA-C When: 10/17/2018 @ 11:10 a.m. Please Follow Up With: MRI of brain at [facility] When: 11/08/18 @ 12:30 pm Additional Instructions: Blood pressure goal <140/90. Please take CD ROM of CT scans of brain to Dr. Charles appt. Disposition: Home Patient Condition:: Stable Rehab Course A 63-year-old male with past medical history of GERD and migraines, who [facility] to left basal ganglia/temporal IPH, with a goal of returning home at or near his prior level of independence. In September 27, 2018 patient was camping in [place] and developed headache, diaphoretic, aphasic, right-sided facial droop, and right-sided weakness. Patient was life flighted to [place] emergency department in [facility] for a CT of the brain showed a large left basal ganglia/temporal intraparenchymal hemorrhage which measured 8 cm AP by 2.8 cm transverse and 3 cm craniocaudal with localized mass-effect, as well as generalized mass-effect and approximately 3 mm of subfalcine herniation. Blood pressures on admission was 150's/100's. Patient was not currently on any type of anticoagulation, aspirin, or other antiplatelets. Dr. Morrell neurosurgeon consulted, no surgery required. Blood pressure goal <140/90, Keppra probably started for seizure prophylaxis, no seizure documentation, patient was not on Keppra to hospitalization. Patient lives with spouse, in a one level house with one step to enter, prior to admission was independent with all ADLs, mobility and driving. During rehab course, repeat CT of brain on 10/10/2018 showed improvement from last CT on 10/07/18, which showed Hematoma measured 5.6 x 2.7 cm and now measures by 5.6 x 2.5 cm. No new areas of hemorrhage, stable mass effect on the left lateral ventricle stable [id number] midline shift of 7.2 mm. Patient was started on DVT prophylaxis of lovenox per Dr. Morrell approval, and for MRI of brain without contrast in 6 weeks. Patient will be discharged home with family on 10/12/18 with outpatient OT/PT/ST. Patient aphasia and apraxia improving and has gained increase in strength and mobility. Spoke with Dr. Charles neurosurgeon office and set up appointment to follow up after discharge. Patient will also follow up with PCP. Meaningful Use Info Meaningful Use Diagnoses (Choose all that apply): Hemorrhagic CVA - CVA Therapy Assessed for PT,OT and/or ST?: Yes
[2018-10-11 18:41] VITALS: BP 123/76; PULSE 60; RESP 16; TEMP 36.5; O2SAT 98
[2018-10-12] MEDS: Enoxaparin 40 MG/0.4 ML Syringe SC (06:01)
[2018-10-12 07:00] VITALS: BP 113/70; PULSE 79; RESP 16; TEMP 36.7; O2SAT 99
[2018-10-12] MEDS: Famotidine 20 MG Tablet PO (08:09)
[2018-10-12] MEDS: Escitalopram Oxalate 10 MG Tablet PO (08:10)
[2018-10-12 10:00] VITALS: BMI 24.3
--- NOTE | 2018-10-12 10:40 | NURSING ---
and patient aware of discharge instruct and need to take blood pressure at home and verbalized understanding.
[2018-10-12 11:24] VITALS: BP 113/70; PULSE 79; RESP 16; TEMP 36.7; O2SAT 99
== END 2018-10-12 10:40 | disposition home or self-care (01) | DRG 57 ==
PROVIDERS: Nurse Practitioner Family; Admitting Provider Psychiatry & Neurology Neurology; Family Provider Family Medicine; PCP Family Medicine; Referring Provider Psychiatry & Neurology Neurology; Visit Provider Internal Medicine
DX: I69.151 Hemiplegia and hemiparesis following nontraumatic intracerebral hemorrhage affecting right dominant side (principal); I69.120 Aphasia following nontraumatic intracerebral hemorrhage; G47.30 Sleep apnea, unspecified; Z87.891 Personal history of nicotine dependence; I69.192 Facial weakness following nontraumatic intracerebral hemorrhage; G43.909 Migraine, unspecified, not intractable, without status migrainosus; F32.9 Major depressive disorder, single episode, unspecified; R00.1 Bradycardia, unspecified; K21.9 Gastro-esophageal reflux disease without esophagitis
CPT/HCPCS: 36415; 70450; 80048; 85025; 92507; 92523; 92526; 92610; 93005; 97110; 97112; 97116; 97162; 97166; 97530; 97535; 97802

== ENCOUNTER → 2018-11-05 | Outpatient (CLI) | payer OTHER, SELFPAY ==
[2018-10-12 10:00] VITALS: BMI 24.3
--- NOTE | 2018-11-05 17:57 | CT_ITS ---
STUDY: CT BRAIN WITHOUT CONTRAST REASON FOR EXAM: Male, 63 years old. Follow-up for prior intracranial hemorrhage. Residual right-sided weakness and speech difficulty. RADIATION DOSAGE (If Supplied By Facility): CTDIvol = ( 44.99 ) mGy, DLP = ( 815.79 ) mGycm TECHNIQUE: Transaxial CT imaging of the brain was performed without administration of intravenous contrast material. Individualized dose optimization techniques were used for this CT. COMPARISON: Comparison is made with prior examination dated October 10, 2018. FINDINGS: Normal soft tissue structures. Normal calvarium. The hemorrhage in the left frontal temporal parietal lobes as result. Residual encephalomalacia is seen at the site of the hematoma. There is no evidence of midline shift at this time. Normal white matter tracts of the cerebral hemispheres. Normal basal ganglia and thalami. Normal brainstem. Normal cerebellum. There is no intracranial hemorrhage. Atherosclerotic calcification of the cavernous portions of the internal carotid arteries bilaterally. Mucosal thickening of the ethmoid sinuses and maxillary sinus laterally. CT/Brain/Head without Contrast IMPRESSION: No evidence of intracranial hemorrhage at this time. Post hemorrhagic contents of malacia is seen in the left temporal parietal frontal lobes. Electronically Signed: Vel Hinkle, at 12:40 EDT , Service support ,
== END | disposition home or self-care (01) ==
LOC: CT 17:47
PROVIDERS: Family Provider Family Medicine; PCP Family Medicine
DX: I61.9 Nontraumatic intracerebral hemorrhage, unspecified (principal)
CPT/HCPCS: 70450

== ENCOUNTER → 2019-01-13 16:42 | Outpatient (CLI) | payer OTHER, SELFPAY ==
[2019-01-14 10:58] LABS: CREATININE FINGERSTICK 1.05 mg/dL (0.70-1.30); EGFR FINGERSTICK > 60 mL/min (>60)
== END ==
PROVIDERS: Family Provider Family Medicine; PCP Family Medicine
DX: I61.9 Nontraumatic intracerebral hemorrhage, unspecified (principal)